=== PATIENT | female | born 1980 | race African-American/Black ===

== ENCOUNTER → 2018-06-29 | Outpatient (CLI) | payer OTHER ==
[2018-06-29 10:49] LABS: BASO % 1 % (0-3); EOS # 0.1 x10^3/uL (0.0-0.7); EOS % 1 % (0-3); HEMATOCRIT 35.3 % (36.0-47.0); HEMOGLOBIN 11.8 g/dL (12.0-15.5); LYMPH # 2.4 x10^3/uL (1.0-4.8); LYMPH % 38 % (24-48); MEAN CORPUSCULAR HEMOGLOBIN 29 pg (25-35); MEAN CORPUSCULAR HGB CONC 33 g/dL (31-37); MEAN CORPUSCULAR VOLUME 85 fL (79-100); MONO # 0.4 x10^3/uL (0.0-1.1); MONO % 6 % (0-9); NEUT # 3.4 x10^3uL (1.8-7.7); NEUT % 55 % (31-73); PLATELET COUNT 214 x10^3/uL (140-400); RED BLOOD COUNT 4.13 x10^6/uL (3.50-5.40); RED CELL DISTRIBUTION WIDTH 14.2 % (11.5-14.5); WHITE BLOOD COUNT 6.3 x10^3/uL (4.0-11.0)
[2018-06-29 11:15] LABS: FREE T4 1.03 ng/dL (0.76-1.46); THYROID STIM HORMONE (TSH) 2.071 uIU/mL (0.358-3.74)
== END | disposition home or self-care (01) ==
LOC: LAB 09:52
PROVIDERS: ATTEND Obstetrics & Gynecology
DX: N94.6 Dysmenorrhea, unspecified (principal)
CPT/HCPCS: 36415; 84439; 84443; 85025

== ENCOUNTER → 2018-07-09 | Outpatient (CLI) | payer OTHER ==
--- NOTE | 2018-07-09 16:25 | RAD ---
Pelvic ultrasound Clinical Indication: Dysmenorrhea.. . TRANSABDOMINAL SCAN No obvious uterine abnormality. Ovaries are poorly seen. TRANSVAGINAL SCAN Uterus: * Size (in centimeters): 9.0 length by 5.0 AP by 6.2 wide * Appearance: Subseptate morphology. * Endometrium: Right endometrium measures 5.2 mm thick, left endometrium measures 5.6 mm thick. Right ovary: * Size: 3.9 cm long axis. * Blood flow: Intact * Appearance: No significant mass. Left ovary: * Size: 4.7 cm long axis. * Blood flow: Intact * Appearance: Complex lesion, demonstrates both solid and cystic component. Measures 2.5 x 2.0 x 2.4 cm. This does demonstrate some peripheral vascular flow. Free fluid: Mild IMPRESSION: 1. Subseptate uterus. 2. Complex left ovarian lesion measures 2.5 cm. This could represent a complex or hemorrhagic cyst but other etiologies are not excludable. In addition, there is some peripheral vascular flow. Recommend follow-up ultrasound in 2-6 weeks. Electronically signed by: Claudio Mabry MD (07/09/2018 4:20 PM) [facility]
== END | disposition home or self-care (01) ==
LOC: US 15:59
PROVIDERS: ATTEND Obstetrics & Gynecology
DX: N83.8 Other noninflammatory disorders of ovary, fallopian tube and broad ligament (principal); Q51.28 Other and unspecified doubling of uterus
CPT/HCPCS: 76830; 76856

== ENCOUNTER → 2018-11-09 | Outpatient (CLI) | payer OTHER ==
[~2018-11-09] MED LIST: AMLO10TA8 PO; DOCU-109 PO; IBUP-1060 PO; LISI1TAB7 PO; OXYC1TAB15 PO
[2018-11-09 13:21] LABS: BASO % 1 % (0-3); EOS # 0.1 x10^3/uL (0.0-0.7); EOS % 1 % (0-3); HEMATOCRIT 37.3 % (36.0-47.0); HEMOGLOBIN 12.7 g/dL (12.0-15.5); LYMPH % 37 % (24-48); MEAN CORPUSCULAR HEMOGLOBIN 29 pg (25-35); MEAN CORPUSCULAR HGB CONC 34 g/dL (31-37); MEAN CORPUSCULAR VOLUME 85 fL (79-100); MONO # 0.4 x10^3/uL (0.0-1.1); MONO % 6 % (0-9); NEUT % 55 % (31-73); PLATELET COUNT 229 x10^3/uL (140-400); RED BLOOD COUNT 4.38 x10^6/uL (3.50-5.40); RED CELL DISTRIBUTION WIDTH 14.2 % (11.5-14.5); WHITE BLOOD COUNT 5.5 x10^3/uL (4.0-11.0)
== END | disposition home or self-care (01) ==
LOC: SURGPAT 12:33
PROVIDERS: ATTEND Obstetrics & Gynecology
DX: Z01.818 Encounter for other preprocedural examination (principal); N83.202 Unspecified ovarian cyst, left side; N94.6 Dysmenorrhea, unspecified; N80.9 Endometriosis, unspecified
CPT/HCPCS: 36415; 85025

== ENCOUNTER 2018-11-15 09:57 | Observation (INO) | payer OTHER ==
[~2018-11-15] VITALS: Ht 160 cm; Wt 95.0 kg
[~2018-11-15 09:57] MED LIST changes: +BUPIVACAINE-EPI 0.25%-1:200000 MPF 30 ML VIAL. ONE; -DOCU-109 PO; +ESTROGENS, CONJ VAGINAL CREAM 30GM TUBE. ONE; -IBUP-1060 PO; +INDIGOTINDISULFONATE SODIUM 40 MG/5 ML AMPUL. IV ONE; -OXYC1TAB15 PO
[2018-11-15] MEDS ORDERED: ceFAZolin 2GM PREMIX 2 GM/50 ML BAG IV ONE (10:00)
[2018-11-15] MEDS ORDERED: PROPOFOL 20 ML IV ONE (10:22)
[2018-11-15] MEDS ORDERED: fentaNYL PF VIAL 100 MCG/2 ML VIAL ONE ×4 (10:22→13:51)
[2018-11-15] MEDS ORDERED: LIDOCAINE 2% PF 5 ML VIAL. ONE (10:22)
[2018-11-15] MEDS ORDERED: ROCURONIUM 50 MG/5 ML VIAL. ONE (10:23)
[2018-11-15] MEDS ORDERED: SUCCINYLCHOLINE 200 MG/10 ML VIAL. ONE (10:28)
[2018-11-15] MEDS: IV RINGERS,LACTATED 1000ML 1,000 ML IV SCH ×2 (10:38→20:26)
[2018-11-15] MEDS ORDERED: LIDOCAINE 1% PF 2 ML VIAL. ID PRN (10:45)
[2018-11-15] MEDS ORDERED: fentaNYL PF VIAL 100 MCG/2 ML VIAL IV PRN (10:45)
[2018-11-15] MEDS ORDERED: MIDAZOLAM HCL/PF 2 MG/2 ML VIAL. IV PRN (10:45)
[2018-11-15 10:50] LABS: U PREG PATIENT NEGATIVE (NEG)
[2018-11-15] MEDS ORDERED: DEXAMETHASONE SOD PHOS 4 MG/ML VIAL ONE (11:59)
[2018-11-15] MEDS ORDERED: DESFLURANE 61 TO 120 MINUTES IH ONE (11:59)
[2018-11-15] MEDS ORDERED: NEOSTIGMINE METHYLSULFATE 5 MG/5 ML SYRINGE. ONE (12:10)
[2018-11-15] MEDS ORDERED: GLYCOPYRROLATE 1 MG/5 ML VIAL. ONE (12:10)
[2018-11-15] MEDS ORDERED: FAMOTIDINE 20 MG/2 ML VIAL ONE (12:10)
[2018-11-15] MEDS ORDERED: ONDANSETRON PF 4 MG/2 ML VIAL. ONE (12:10)
[2018-11-15] MEDS ORDERED: diphenhydrAMINE HCL 25 MG CAPSULE PO PRN (13:00)
[2018-11-15] MEDS ORDERED: 0.9 % SODIUM CHLORIDE 10 ML DISP.SYRIN. IV PRN (13:00)
[2018-11-15] MEDS ORDERED: PROCHLORPERAZINE 10 MG/2 ML VIAL. IV PRN (13:00)
[2018-11-15] MEDS ORDERED: ONDANSETRON PF 4 MG/2 ML VIAL. IV PRN (13:00)
[2018-11-15] MEDS ORDERED: ZOLPIDEM 5 MG TABLET. PO PRN (13:00)
[2018-11-15] MEDS ORDERED: diphenhydrAMINE 50 MG/ML VIAL IV PRN (13:00)
[2018-11-15] MEDS ORDERED: DEXTROSE 50% 25 GM / 50ML DISP.SYRIN. IV PRN (13:00)
--- NOTE | 2018-11-15 13:00 | PDOC ---
BRIEF OPERATIVE NOTE Date: Nov 15, 2018 Pre-Op Diagnosis 1. Dysmenorrhea 2. ANDERSON Cyst Post-Op Diagnosis SAme + Endometriosis Procedure Performed TLH & LSO Surgeon Dr. Quiñonez Supervisor Computer Operations Ann Anesthesia Type: General Blood Loss 50 ml Specimens Obtained cervix, uterus, brent. fallopian tubes and ANDERSON Findings enlarged uterus, nml ROV, nml fallopian tubes brent., ANDERSON with 3 cm cyst and endometriosis Complications none Operative Note see dictation CHAPARRITA QUIÑONEZ Jr, MD Nov 15, 2018 13:00
[2018-11-15] MEDS: fentaNYL PF VIAL 100 MCG/2 ML VIAL IV PRN ×4 (13:20→14:08)
--- NOTE | 2018-11-15 13:29 | OP ---
DATE OF SURGERY: PREOPERATIVE DIAGNOSES: 1. Dysmenorrhea. 2. Left ovarian cyst. POSTOPERATIVE DIAGNOSES: 1. Dysmenorrhea. 2. Left ovarian cyst. 3. Endometriosis. PROCEDURE: TLH and LSO. SURGEON: Chaparrita Quiñonez MD STAKING ENGINEER: Ann. ANESTHESIA: GETA. ESTIMATED BLOOD LOSS: 50 mL. COMPLICATIONS: None. FINDINGS: Enlarged uterus, normal right ovary, normal fallopian tubes bilaterally, left ovary with a 3 cm cyst, endometriosis located near the bladder area and right cornua of the uterus. SUMMARY: A 37-year-old female with history of dysmenorrhea, left ovarian cyst, unresponsive to medical treatment. The patient was counseled on risks, benefits and expectations of TLH and LSO via da Anette robot. The patient voiced clear understanding to proceed. DESCRIPTION OF PROCEDURE: The patient was taken to surgery suite, placed in dorsal lithotomy position where she was prepped with Betadine solution for vaginal prep and ChloraPrep for abdominal prep. After adequate anesthesia, a weighted speculum and curved Shady placed vaginally. Anterior lip of the cervix grasped with single tooth tenaculum. The Janet uterine manipulator was then placed. Single tooth tenaculum and weighted speculum were removed. Attention was now placed on abdomen. Small transverse skin incision made just below the umbilicus with a scalpel. The Veress needle was then placed through the infraumbilical incision site. The abdomen was allowed to insufflate up to 1-1/2 liters CO2 gas. The Veress needle was then removed. An 8-mm trocar port was placed. The camera was positioned. Uterus appeared enlarged. Both fallopian tubes were visualized and normal. Right ovary appeared normal. Left ovary demonstrated a 3 cm cyst. There was endometriosis located in the right cornua of the uterus as well as near the bladder region. These were removed with the specimen. An incision was made in the left and right lower quadrant, which 8 mm trocars were placed. An accessory port was placed in the left upper quadrant, which was 5-mm port. The camera was then docked in normal fashion. I then proceeded to the console. With the aid of bipolar cautery and vessel sealer, the right round ligament was coagulated and dissected. The right fallopian tube was coagulated and dissected away from the right pelvic side wall. This was removed through the 8-mm port. The right utero-ovarian pedicle was coagulated and dissected. The right broad ligament was coagulated and dissected down to and including the right uterine artery. Bladder flap was partially created with the vessel sealer and blunt dissection. The left round ligament was then coagulated and dissected. The left infundibulopelvic ligament was coagulated and dissected away from the left pelvic sidewall. Left broad ligament was coagulated and dissected including the left uterine artery. The uterus was then circumscribed with the spatula at the level of the vaginal ring. The cervix, uterus, left fallopian tube, left ovary were then removed in their entirety. The vaginal cuff was then reapproximated using V-Loc suture in a running fashion. Suction irrigation was utilized to verify good hemostasis of all pedicles as well as the vaginal cuff. The robot was then undocked. Trocars removed under direct visualization. The abdomen was allowed to deflate as much as possible along with mechanical manipulation. The four skin incisions were reapproximated using 4-0 Vicryl suture in subcuticular manner. A 0.25% Marcaine with epinephrine was injected at each incision site. Moist vaginal packing was placed. The patient tolerated the procedure well and was taken to recovery room in stable condition. Sponge and needle count correct x 3. CHAPARRITA QUIÑONEZ MD DR: DANIELLE/teetee JOB#: [id number] / [id number]
[2018-11-15] MEDS: GABAPENTIN 300 MG CAPSULE. PO SCH ×2 (14:00→22:00)
[2018-11-15 14:51] VITALS: BP 130/75
[2018-11-15] MEDS: KETOROLAC 30 MG/ML VIAL. IV PRN (14:59)
[2018-11-15 15:10] VITALS: BP 135/79
[2018-11-15 15:30] VITALS: BP 133/79
[2018-11-15 15:50] VITALS: BP 129/82
[2018-11-15] MEDS: oxyCODONE/APAP 5/325 1 TAB TABLET PO PRN (18:10)
[2018-11-15 20:00] VITALS: BP 104/62
[2018-11-16 00:15] VITALS: BP 110/66
[2018-11-16] MEDS: KETOROLAC 30 MG/ML VIAL. IV PRN (01:51)
[2018-11-16] MEDS: SIMETHICONE 80 MG TAB.CHEW PO PRN ×2 (03:21→19:27)
[2018-11-16] MEDS: oxyCODONE/APAP 5/325 1 TAB TABLET PO PRN ×2 (04:50→19:28)
[2018-11-16] MEDS: GABAPENTIN 300 MG CAPSULE. PO SCH ×3 (06:00→12:53)
[2018-11-16 06:06] VITALS: BP 110/71
[2018-11-16 06:06] LABS: BASO % 0 % (0-3); EOS % 0 % (0-3); HEMOGLOBIN 11.1 g/dL (12.0-15.5); LYMPH # 1.1 x10^3/uL (1.0-4.8); LYMPH % 9 % (24-48); MEAN CORPUSCULAR HEMOGLOBIN 29 pg (25-35); MEAN CORPUSCULAR HGB CONC 34 g/dL (31-37); MEAN CORPUSCULAR VOLUME 85 fL (79-100); MONO # 0.4 x10^3/uL (0.0-1.1); MONO % 3 % (0-9); NEUT # 10.8 x10^3uL (1.8-7.7); NEUT % 87 % (31-73); RED BLOOD COUNT 3.87 x10^6/uL (3.50-5.40); RED CELL DISTRIBUTION WIDTH 14.1 % (11.5-14.5); WHITE BLOOD COUNT 12.3 x10^3/uL (4.0-11.0)
[2018-11-16] MEDS: CALCIUM CARBONATE 500 MG TAB.CHEW PO PRN ×3 (08:07→19:27)
[2018-11-16 08:12] LABS: PLATELET COUNT 238 x10^3/uL (140-400)
[2018-11-16 08:14] LABS: % BANDS 5 % (0-9); % LYMPHS 4 % (24-48); % MONOS 4 % (0-10); % SEGS 87 % (35-66); PLT ESTIMATE ADEQUATE (ADEQUATE)
[2018-11-16 10:00] VITALS: BP 119/72
[2018-11-16] MEDS ORDERED: BISACODYL 10 MG SUPP.RECT. PR PRN (12:00)
[2018-11-16] MEDS ORDERED: MAGNESIUM HYDROXIDE 2,400 MG/30 ML ORAL.SUSP. PO ONE (12:30)
[2018-11-16] MEDS ORDERED: SODIUM PHOSPHATES 19/7GM 133 ML ENEMA. PR ONE (15:30)
--- NOTE | 2018-11-16 15:49 | PDOC ---
SURGICAL PROGRESS NOTE Subjective Pt. feeling well. Pain controlled. Vital Signs Vital Signs Date Time Temp Pulse Resp B/P (MAP) Pulse Ox O2 Delivery O2 Flow Rate FiO2 11/16/18 10:00 97.5 77 18 119/72 (88) 100 Room Air 97.5 11/15/18 13:35 8.0 I&O Intake and Output 11/16/18 07:00 Intake Total 3370 ml Output Total 2400 ml Balance 970 ml Intake Oral 1220 ml IV Total 1050 ml Other 1100 ml Output Urine Total 2350 ml Estimated Blood Loss 50 ml PATIENT HAS A BASILIO: No General: Alert, Oriented X3, Cooperative HEENT: Atraumatic Lungs: Clear to auscultation Heart: Regular rate Abdomen: Normal bowel sounds, Soft, No masses Psych/Mental Status: Mental status NL Labs Laboratory Tests Test 11/15/18 10:06 11/16/18 04:35 Urine Test Negative (NEG) White Blood Count 12.3 x10^3/uL (4.0-11.0) Red Blood Count 3.87 x10^6/uL (3.50-5.40) Hemoglobin 11.1 g/dL (12.0-15.5) Hematocrit 33.0 % (36.0-47.0) Mean Corpuscular Volume 85 fL (79-100) Mean Corpuscular Hemoglobin 29 pg (25-35) Mean Corpuscular Hemoglobin Concent 34 g/dL (31-37) Red Cell Distribution Width 14.1 % (11.5-14.5) Platelet Count 238 x10^3/uL (140-400) Neutrophils (%) (Auto) 87 % (31-73) Lymphocytes (%) (Auto) 9 % (24-48) Monocytes (%) (Auto) 3 % (0-9) Eosinophils (%) (Auto) 0 % (0-3) Basophils (%) (Auto) 0 % (0-3) Neutrophils # (Auto) 10.8 x10^3uL (1.8-7.7) Lymphocytes # (Auto) 1.1 x10^3/uL (1.0-4.8) Monocytes # (Auto) 0.4 x10^3/uL (0.0-1.1) Eosinophils # (Auto) 0.0 x10^3/uL (0.0-0.7) Basophils # (Auto) 0.0 x10^3/uL (0.0-0.2) Segmented Neutrophils % 87 % (35-66) Band Neutrophils % 5 % (0-9) Lymphocytes % 4 % (24-48) Monocytes % 4 % (0-10) Platelet Estimate Adequate (ADEQUATE) Laboratory Tests Test 11/16/18 04:35 White Blood Count 12.3 x10^3/uL (4.0-11.0) Red Blood Count 3.87 x10^6/uL (3.50-5.40) Hemoglobin 11.1 g/dL (12.0-15.5) Hematocrit 33.0 % (36.0-47.0) Mean Corpuscular Volume 85 fL (79-100) Mean Corpuscular Hemoglobin 29 pg (25-35) Mean Corpuscular Hemoglobin Concent 34 g/dL (31-37) Red Cell Distribution Width 14.1 % (11.5-14.5) Platelet Count 238 x10^3/uL (140-400) Neutrophils (%) (Auto) 87 % (31-73) Lymphocytes (%) (Auto) 9 % (24-48) Monocytes (%) (Auto) 3 % (0-9) Eosinophils (%) (Auto) 0 % (0-3) Basophils (%) (Auto) 0 % (0-3) Neutrophils # (Auto) 10.8 x10^3uL (1.8-7.7) Lymphocytes # (Auto) 1.1 x10^3/uL (1.0-4.8) Monocytes # (Auto) 0.4 x10^3/uL (0.0-1.1) Eosinophils # (Auto) 0.0 x10^3/uL (0.0-0.7) Basophils # (Auto) 0.0 x10^3/uL (0.0-0.2) Segmented Neutrophils % 87 % (35-66) Band Neutrophils % 5 % (0-9) Lymphocytes % 4 % (24-48) Monocytes % 4 % (0-10) Platelet Estimate Adequate (ADEQUATE) Assessment/Plan A: POD# TLH & LSO P: D/c home. CHAPARRITA MILLAN Jr, MD Nov 16, 2018 15:49
[2018-11-16] MEDS ORDERED: OXYC1TAB15 PO (15:51)
[2018-11-16] MEDS ORDERED: DOCU-109 PO (15:51)
[2018-11-16] MEDS ORDERED: IBUP-1060 PO (15:51)
--- NOTE | 2018-11-16 15:53 | DISCH ---
DISCHARGE INSTRUCTIONS Condition on Discharge Condition on Discharge: Stable Activity After Discharge Activity Instructions for Disc: Activity as tolerated Lifting Instructions after Dis: No heavy lifting Driving Instructions after Dis: No driving for 2 weeks Diet after Discharge Diet after Discharge: Regular Contacting the DRJocelynn after DC Call your doctor for: Concerns you may have Follow-Up Follow up with: Dr. Quiñonez in 2 weeks. CHAPARRITA QUIÑONEZ Jr, MD Nov 16, 2018 15:53
[2018-11-16 20:05] VITALS: BP 139/87
--- NOTE | 2018-11-20 09:07 | PATHOLOGY ---
[facility] Accession Number: [id number] . 01 Material submitted: . uterus - CERVIX, UTERUS, BILATERAL TUBES, AND LEFT OVARY . 01 Clinician provided ICD-10: y . 01 Clinical history: . Dysmenorrhagia . 02 Diagnosis: Uterus, bilateral fallopian tubes, and left ovary, removal: - Cervix with mild chronic inflammation, squamous metaplasia, and nabothian cysts. - Proliferative phase endometrium. - Myometrium with no pathologic diagnosis. - Right fallopian tube with simple paratubal cyst. - Left fallopian tube with focal adhesion to left ovary - Left ovary with simple cysts (SKM/db; 11/19/2018) LBQ/11/19/2018 . 02 Electronically signed: . Garrick Franz MD, Pathologist NPI- [id number] . 01 Gross description: . The specimen is received in formalin, labeled "Jose, Zulema, cervix, uterus, bilateral tubes and left ovary" is an unopened, and pyriform uterus weighing 106 g with attached left adnexa weighing 17 g. The uterine corpus with attached cervix (7.5 x 5.0 x 3.0 cm), left adnexa (ovary = 3.7 x 3.0 x 2.0 cm and fallopian 6.0 cm length and up to 0.4 cm in diameter. Also received within the container is a detached, fimbriated segment of right fallopian tube measuring 7.0 cm in length and up to 0.4 cm in diameter. The serosa is alberts-pink and smooth. The anterior paracervical soft tissue is inked blue. The ectocervix is disrupted and has a surface diameter of 3.2 x 3.0 cm and a 1.0 cm slit-like external os. The ectocervical mucosa is disrupted, hemorrhagic and granular from 12:00 to 6:00 with the remaining alberts-pink and smooth. The 2.5 cm long x 0.8 cm wide endocervical canal is covered with alberts-pink, herringbone mucosa. The endometrial cavity is triangular, 4.5 cm long x 2.0 cm wide, and covered with alberts-pink endometrium of up to 0.3 cm thickness. There are no polyps or masses. The alberts-pink, moderately trabeculated myometrium is 1.8 cm in thickness. No discrete nodules are identified. The left ovary has a alberts-key smooth external surface. The cut surfaces are white-key, with a well-defined yellow nodule resembling corpus luteum and multiple white nodules resembling corpora albicantia. There are few intraparenchymal cysts which have a smooth lining and are filled with clear fluid. The right and left fallopian tubes have a pink-alberts serosal surface with the left focally adhered to the ovary. The fimbriae are normal in configuration. There is a 1.0 cm clear fluid-filled cyst attached to the of right fallopian tube serosa. Career Development Specialist tissue submitted as follows: A1-A4. Anterior cervix A5-A8. Posterior cervix A9-A10. Anterior endomyometrium. (From lower uterine segment to fundus) A11-A12. Posterior endomyometrium. (From fundus to lower uterine segment) A13. Right fallopian tube. A14. Left ovary and fallopian tube, adhesion. A15-A16. Left ovary, bisected. A17. Left fallopian tube. ([facility]; 11/16/2018) SHS/SHS . 02 Pathologist provided ICD-10: N72, N83.8, N83.202 . 02 CPT . 941431 Specimen Comment: A courtesy copy of this report has been sent to Specimen Comment: [phone], . Specimen Comment: Report sent to / DR PRITCHETT Performed at: 01 [facility] [address], [place] [id number] MD Caio Cross MD Phone: [phone] Performed at: 02 [facility] [address] [place], [place] [id number] MD Juventino La MD Phone: [phone]
== END 2018-11-16 20:15 | disposition home or self-care (01) ==
LOC: SURG 09:57 → 3 NORTH 13:00
PROVIDERS: ADMIT Obstetrics & Gynecology; ATTEND Obstetrics & Gynecology
DX: N94.6 Dysmenorrhea, unspecified (principal); N83.202 Unspecified ovarian cyst, left side; N80.1 Endometriosis of ovary; N80.0 Endometriosis of uterus; I10 Essential (primary) hypertension
CPT/HCPCS: 36415; 58570; 81025; 85007; 85025; 86850; 86900; 86901; 88307; 96374; 96375; 96376; A7015; G0378; G0379; J0330; J0696; J0780; J1100; J1885; J2001; J2405; J2704; J2710; J3010; J3490; J7030; J7120

== ENCOUNTER 2019-04-23 16:13 | Emergency (ER) | payer OTHER ==
[~2019-04-23] VITALS: Ht 160 cm; Wt 90.7 kg
[~2019-04-23 16:13] MED LIST changes: -BUPIVACAINE-EPI 0.25%-1:200000 MPF 30 ML VIAL. ONE; +DOCU-109 PO; -ESTROGENS, CONJ VAGINAL CREAM 30GM TUBE. ONE; +IBUP-1060 PO; -INDIGOTINDISULFONATE SODIUM 40 MG/5 ML AMPUL. IV ONE; +LISI1TAB20 PO; -LISI1TAB7 PO; +OXYC1TAB15 PO
[2019-04-23 16:38] VITALS: BP 168/92
--- NOTE | 2019-04-23 16:42 | PHYS DOC ---
Past Medical History Past Medical History: Hypertension (HEATHER SNOWDEN DO) Past Surgical History: Hysterectomy (HEATHER SNOWDEN DO) Additional Information: Nonsmoker Alcohol Use: Rarely Drug Use: None (HEATHER SNOWDEN DO) Adult General Chief Complaint Chief Complaint: COUGH HPI HPI Patient is a 38 year old female who presents with Monday began having cough, chest tightness, fever and body aches. Patient states on Monday the fever and bodyaches went away but she continues with cough and chest tightness. Patient currently denies pain. (SHAMEKA WINKLER APRN) Review of Systems Review of Systems Constitutional: fever or chills [] Eyes: Denies change in visual acuity, redness, or eye pain [] Respiratory: cough or shortness of breath [] Cardiovascular: Chest tightness Musculoskeletal: Body aches. Denies back pain or joint pain [] All other systems were reviewed and found to be within normal limits, except as documented in this note. (SHAMEKA WINKLER APRN) Current Medications Current Medications Current Medications Medications (Trade) Dose Ordered Sig/Dana Start Time Stop Time Status Last Admin Dose Admin Albuterol Sulfate (Ventolin Neb Soln) 2.5 mg 1X ONCE 04/23/19 16:45 04/23/19 16:46 DC 04/23/19 16:46 2.5 MG Prednisone (Prednisone) 50 mg 1X ONCE 04/23/19 16:45 04/23/19 16:46 DC 04/23/19 17:11 50 MG (HEATHER SNOWDEN DO) Allergies Allergies Allergies Coded Allergies Type Severity Reaction Last Updated Verified No Known Drug Allergies 11/15/18 No (HEATHER SNOWDEN DO) Physical Exam Physical Exam Constitutional: Well developed, well nourished, no acute distress, non-toxic appearance. [] HENT: Normocephalic, atraumatic, bilateral external ears normal, oropharynx moist, no oral exudates, nose normal. [] Eyes: PERRLA, EOMI, conjunctiva normal, no discharge. [] Neck: Normal range of motion, no tenderness, supple, no stridor. [] Cardiovascular:Heart rate regular rhythm, no murmur [] Lungs & Thorax: Bilateral breath sounds clear but tight or diminished to auscultation [] Abdomen: Bowel sounds normal, soft, no tenderness, no masses, no pulsatile masses. [] Skin: Warm, dry, no erythema, no rash. [] Neurologic: Alert and oriented X 3, normal motor function, normal sensory function, no focal deficits noted. [] Psychologic: Affect normal, judgement normal, mood normal. [] (SHAMEKA WINKLER APRN) Current Patient Data Vital Signs Vital Signs Date Time Temp Pulse Resp B/P (MAP) Pulse Ox O2 Delivery O2 Flow Rate FiO2 04/23/19 16:48 99 Room Air 04/23/19 16:38 98.9 75 18 168/92 (117) 98.9 (HEATHER SNOWDEN DO) Lab Values Laboratory Tests Test 04/23/19 17:13 Influenza Type A Antigen Negative (NEGATIVE) Influenza Type B Antigen Negative (NEGATIVE) (HEATHER SNOWDEN DO) EKG EKG [] (SHAMEKA WINKLER APRN) Radiology/Procedures Radiology/Procedures [] (SHAMEKA WINKLER APRN) Impressions: [facility] [address] [place] [address] IMAGING REPORT Signed PATIENT: PARISA PETE ACCOUNT: [id number] : 1980 LOCATION: ER AGE: 38 SEX: F EXAM STATUS: REG ER ORD. PHYSICIAN: SHAMEKA WINKLER APRN REASON: cough PROCEDURE: CHEST PA & LATERAL CHEST PA LATERAL INDICATION: Cough. COMPARISON STUDY: 10/11/2017. FINDINGS: Lungs: Normal lung volume. No pulmonary mass or consolidation. The tracheobronchial tree and hilar structures are normal. Pleura: No pleural effusion or pneumothorax. Heart and Mediastinum: The cardiomediastinal silhouette is normal. The great vessels of the thorax are normal. Bones and Soft Tissues: The bones and soft tissues are within normal limits. IMPRESSION: No acute cardiopulmonary process. Electronically signed by: Aung Silverio MD (04/23/2019 5:26 PM) [facility] DICTATED and SIGNED BY: AUNG SILVERIO MD DATE: 04/23/19 4221 (SHAMEKA WINKLER APRN) Course & Med Decision Making Course & Med Decision Making Alert and oriented. Speaks in full clear sentences. Skin pink warm and dry. Lungs are clear but are tight. Patient has a dry cough. She states in the morning she may cough up a small amount of mucous but primarily is dry cough. Patient denies nasal congestion. Throat is pink and without exudates or swelling. Bilateral ear tympanic are pearly white. Patient denies nausea, vomiting, chest pain, abdominal pain, dysuria, back pain, numbness or tingling, headache, dizziness, diarrhea. Ambulatory with a steady gait. PERRLA. Vital signs within normal limits. Chest xray shows no acute findings. Patient feeling better after breathing treatment. (SHAMEKA WINKLER APRN) Dragon Disclaimer Dragon Disclaimer This electronic medical record was generated, in whole or in part, using a voice recognition dictation system. (SHAMEKA WINKLER APRN) Departure Departure Impression: Primary Impression: Cough Disposition: HOME, SELF-CARE Condition: STABLE Referrals: JULIANO PRITCHETT MD (PCP) Patient Instructions: Cough, Adult Additional Instructions: Follow up with primary care if needed. Use medications as directed. Scripts Albuterol Sulfate (Proair Hfa) 8.5 Gm Hfa.aer.ad 1 PUFF INH PRN Q6HRS PRN for SHORTNESS OF BREATH, #1 INHALER Prov: SHAMEKA WINKLER APRN 04/23/19 Benzonatate (TESSALON PERLE) 100 Mg Capsule 200 MG PO TID PRN for COUGH, #30 CAP Prov: SHAMEKA WINKLER APRN 04/23/19 Methylprednisolone (MEDROL) 4 Mg Tab.ds.pk 1 PKG PO UD, #1 PKG Prov: SHAMEKA WINKLER APRN 04/23/19 Attending Signature Attending Signature I have reviewed the PA/STUDENT DEAN's note and plan of care. I was available for consultation as needed during the patient's visit in the emergency department. I agree with the clinical impression, plan, and disposition. (HEATHER SNOWDEN DO) SHAMEKA WINKLER APRN Apr 23, 2019 16:42 HEATHER SNOWDEN DO Apr 25, 2019 13:01
[2019-04-23] MEDS ORDERED: predniSONE 10 MG TABLET PO ONE (16:45)
[2019-04-23] MEDS ORDERED: ALBUTEROL SULFATE 2.5 MG/3 ML NEBU. NEB ONE (16:45)
--- NOTE | 2019-04-23 17:29 | RAD ---
CHEST PA LATERAL INDICATION: Cough. COMPARISON STUDY: 10/11/2017. FINDINGS: Lungs: Normal lung volume. No pulmonary mass or consolidation. The tracheobronchial tree and hilar structures are normal. Pleura: No pleural effusion or pneumothorax. Heart and Mediastinum: The cardiomediastinal silhouette is normal. The great vessels of the thorax are normal. Bones and Soft Tissues: The bones and soft tissues are within normal limits. IMPRESSION: No acute cardiopulmonary process. Electronically signed by: Anthony Silverio MD (04/23/2019 5:26 PM) [facility]
[2019-04-23] MEDS ORDERED: BENZ100C PO (17:33)
[2019-04-23] MEDS ORDERED: ALBU2.5V8 INH (17:33)
[2019-04-23] MEDS ORDERED: METH4TAB2 PO (17:33)
[2019-04-23 18:02] LABS: INFLUENZA A PATIENT NEGATIVE (NEGATIVE); INFLUENZA B PATIENT NEGATIVE (NEGATIVE)
== END 2019-04-23 18:13 | disposition home or self-care (01) ==
LOC: ER 16:13
DX: R05 Cough (principal); R07.89 Other chest pain; R50.9 Fever, unspecified; I10 Essential (primary) hypertension; Z90.710 Acquired absence of both cervix and uterus
CPT/HCPCS: 71046; 87804; 94640; 99285; J7512; J7613

== ENCOUNTER 2019-08-14 21:49 | Emergency (ER) | payer OTHER ==
[~2019-08-14] VITALS: Ht 160 cm; Wt 100.0 kg
[~2019-08-14 21:49] MED LIST changes: +ALBU2.5V8 INH; +BENZ100C PO; +METH4TAB2 PO
[2019-08-14 22:22] LABS: BASO % 0 % (0-3); EOS # 0.1 x10^3/uL (0.0-0.7); EOS % 1 % (0-3); HEMATOCRIT 35.5 % (36.0-47.0); LYMPH # 3.1 x10^3/uL (1.0-4.8); LYMPH % 42 % (24-48); MEAN CORPUSCULAR HEMOGLOBIN 29 pg (25-35); MEAN CORPUSCULAR HGB CONC 34 g/dL (31-37); MEAN CORPUSCULAR VOLUME 85 fL (79-100); MONO # 0.5 x10^3/uL (0.0-1.1); MONO % 7 % (0-9); NEUT # 3.7 x10^3/uL (1.8-7.7); NEUT % 51 % (31-73); PLATELET COUNT 215 x10^3/uL (140-400); RED BLOOD COUNT 4.17 x10^6/uL (3.50-5.40); WHITE BLOOD COUNT 7.4 x10^3/uL (4.0-11.0)
--- NOTE | 2019-08-14 22:22 | PHYS DOC ---
Past Medical History Past Medical History: Hypertension Past Surgical History: Hysterectomy Smoking Status: Never Smoker Alcohol Use: Rarely Drug Use: None Adult General Chief Complaint Chief Complaint: CHEST PAIN HPI HPI Patient is a 38 year old female with history of hypertension and family history of coronary artery disease who presents with complaint of chest pain. 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 Patient stated the pain radiated to her back and associated with shortness of breath and dizziness and left upper extremity paresthesia. Patient rated her pain 7/10 and states with activity she had increasing of the pain or shortness of breath and dizziness. Patient denies history of the same pain. Patient denies recent fever and chills, cough and congestion, nasal congestion and sore throat, vomiting and diarrhea, urinary symptoms. Patient did not take any medication for her pain. Review of Systems Review of Systems Constitutional: Denies fever or chills [] Eyes: Denies change in visual acuity, redness, or eye pain [] HENT: Denies nasal congestion or sore throat [] Respiratory: Denies cough, report shortness of breath [] Cardiovascular: No additional information not addressed in HPI [] GI: Denies abdominal pain, nausea, vomiting, bloody stools or diarrhea [] : Denies dysuria or hematuria [] Musculoskeletal: Denies back pain or joint pain [] Integument: Denies rash or skin lesions [] Neurologic: Denies headache, focal weakness or sensory changes [] Endocrine: Denies polyuria or polydipsia [] All other systems were reviewed and found to be within normal limits, except as documented in this note. Current Medications Current Medications Current Medications Medications (Trade) Dose Ordered Sig/[facility] Start Time Stop Time Status Last Admin Dose Admin Aspirin (Children'S Aspirin) 324 mg 1X ONCE 08/14/19 22:30 08/14/19 22:31 DC 08/14/19 22:46 324 MG Info (CONTRAST GIVEN -- Rx MONITORING) 1 each PRN DAILY PRN 08/14/19 23:45 08/15/19 00:44 DC Iohexol (Omnipaque 350 Mg/ml) 100 ml 1X ONCE 08/15/19 00:00 08/15/19 00:01 DC 08/14/19 23:51 100 ML Nitroglycerin (Nitrostat) 0.4 mg PRN Q5MIN PRN 08/14/19 22:15 08/15/19 00:44 DC 08/14/19 22:47 0.4 MG Allergies Allergies Allergies Coded Allergies Type Severity Reaction Last Updated Verified No Known Drug Allergies 11/15/18 No Physical Exam Physical Exam Constitutional: Well developed, well nourished, mild distress, non-toxic appearance. [] HENT: Normocephalic, atraumatic, bilateral external ears normal, oropharynx moist, no oral exudates, nose normal. [] Eyes: PERRLA, EOMI, conjunctiva normal, no discharge. [] Neck: Normal range of motion, no tenderness, supple, no stridor. [] Cardiovascular:Heart rate regular rhythm, no murmur [] Lungs & Thorax: Bilateral breath sounds clear to auscultation [] Abdomen: Bowel sounds normal, soft, no tenderness, no masses, no pulsatile masses. [] Skin: Warm, dry, no erythema, no rash. [] Back: No tenderness, no CVA tenderness. [] Extremities: No tenderness, no cyanosis, no clubbing, ROM intact, no edema. [] Neurologic: Alert and oriented X 3, normal motor function, normal sensory function, no focal deficits noted. [] Psychologic: Affect normal, judgement normal, mood normal. [] Current Patient Data Vital Signs Vital Signs Date Time Temp Pulse Resp B/P (MAP) Pulse Ox O2 Delivery O2 Flow Rate FiO2 08/14/19 23:56 72 18 158/102 (120) 100 Room Air 08/14/19 21:50 98.6 98.6 Lab Values Laboratory Tests Test 08/14/19 22:05 White Blood Count 7.4 x10^3/uL (4.0-11.0) Red Blood Count 4.17 x10^6/uL (3.50-5.40) Hemoglobin 12.0 g/dL (12.0-15.5) Hematocrit 35.5 % (36.0-47.0) L Mean Corpuscular Volume 85 fL (79-100) Mean Corpuscular Hemoglobin 29 pg (25-35) Mean Corpuscular Hemoglobin Concent 34 g/dL (31-37) Red Cell Distribution Width 14.0 % (11.5-14.5) Platelet Count 215 x10^3/uL (140-400) Neutrophils (%) (Auto) 51 % (31-73) Lymphocytes (%) (Auto) 42 % (24-48) Monocytes (%) (Auto) 7 % (0-9) Eosinophils (%) (Auto) 1 % (0-3) Basophils (%) (Auto) 0 % (0-3) Neutrophils # (Auto) 3.7 x10^3/uL (1.8-7.7) Lymphocytes # (Auto) 3.1 x10^3/uL (1.0-4.8) Monocytes # (Auto) 0.5 x10^3/uL (0.0-1.1) Eosinophils # (Auto) 0.1 x10^3/uL (0.0-0.7) Basophils # (Auto) 0.0 x10^3/uL (0.0-0.2) Prothrombin Time 11.8 SEC (11.7-14.0) Prothrombin Time INR 0.9 (0.8-1.1) D-Dimer (Elodia) 1.34 ug/mlFEU (0.00-0.50) H Sodium Level 140 mmol/L (136-145) Potassium Level 3.6 mmol/L (3.5-5.1) Chloride Level 104 mmol/L (98-107) Carbon Dioxide Level 26 mmol/L (21-32) Anion Gap 10 (6-14) Blood Urea Nitrogen 15 mg/dL (7-20) Creatinine 1.0 mg/dL (0.6-1.0) Estimated GFR (Cockcroft-Gault) 74.7 BUN/Creatinine Ratio 15 (6-20) Glucose Level 93 mg/dL (70-99) Calcium Level 8.8 mg/dL (8.5-10.1) Magnesium Level 2.0 mg/dL (1.8-2.4) Total Bilirubin 0.2 mg/dL (0.2-1.0) Aspartate Amino Transferase (AST) 19 U/L (15-37) Alanine Aminotransferase (ALT) 31 U/L (14-59) Alkaline Phosphatase 68 U/L (46-116) Creatine Kinase 136 U/L (26-192) Troponin I Quantitative < 0.017 ng/mL (0.000-0.055) LO-Clu-W-Type Natriuretic Peptide 25 pg/mL (0-124) Total Protein 7.6 g/dL (6.4-8.2) Albumin 3.9 g/dL (3.4-5.0) Albumin/Globulin Ratio 1.1 (1.0-1.7) Lipase 117 U/L (73-393) Thyroid Stimulating Hormone (TSH) 1.168 uIU/mL (0.358-3.74) Laboratory Tests 08/14/19 22:05 Laboratory Tests 08/14/19 22:05 EKG EKG EKG interpreted by me. EKG at 2157 showed normal sinus rhythm at rate of 62, normal IN and QT intervals, poor R wave progression anteroseptal leads, no acute ST and T wave elevation. Radiology/Procedures Radiology/Procedures [address] [address] IMAGING REPORT Signed PATIENT: PARISA PETE ACCOUNT: [id number] : 1980 LOCATION: ER AGE: 38 SEX: F EXAM STATUS: REG ER ORD. PHYSICIAN: OLGA LIDIA JORDAN MD REASON: Chest pain PROCEDURE: PORTABLE CHEST 1V Portable AP chest. HISTORY: Chest pain AP view was taken of the chest. The patient is lordotically positioned. There are no infiltrates. Heart is normal in size. There is no effusion. There is a granuloma in the left apex. IMPRESSION: 1. No acute chest disease. Electronically signed by: Héctor Pineda MD (08/14/2019 11:35 PM) [id number] DICTATED and SIGNED BY: HÉCTOR PINEDA MD DATE: 08/14/[address] [address] IMAGING REPORT Signed PATIENT: PARISA PETE ACCOUNT: [id number] : 1980 LOCATION: ER AGE: 38 SEX: F EXAM STATUS: REG ER ORD. PHYSICIAN: OLGA LIDIA JORDAN MD REASON: Substernal and epigastric pain PROCEDURE: ABDOMEN LTD Ultrasound of the abdomen limited. HISTORY: Substernal and epigastric pain Ultrasound was used to evaluate the abdomen. The pancreas is incompletely evaluated. Only portions of the mid pancreas were identified. Common duct was normal measuring 4 mm. Proximal aorta and vena cava were within normal limits in size and appearance. Liver is difficult to fully evaluate. A focal liver lesion was not identified. There is flow in the portal vein with color imaging and Doppler. Gallbladder was normal without gallstones or gallbladder wall thickening. Right kidney was 11.4 cm in length without a mass or hydronephrosis. IMPRESSION: 1. Some limitations in evaluation of the liver and pancreas. 2. A focal liver lesion was not identified. 3. No gallstones identified. 4. No right hydronephrosis. Electronically signed by: Héctor Pineda MD (08/14/2019 11:56 PM) [id number] DICTATED and SIGNED BY: HÉCTOR PINEDA MD DATE: 08/14/19 2356 [facility] [address] [place] [address] IMAGING REPORT Signed PATIENT: PARISA PETE ACCOUNT: [id number] : 1980 LOCATION: ER AGE: 38 SEX: F EXAM STATUS: REG ER ORD. PHYSICIAN: OLGA LIDIA JORDAN MD REASON: Chest pain and shortness of breath, elevated d-dimer PROCEDURE: CT ANGIOGRAPHY CHEST EXAM: CT chest with contrast - pulmonary embolus protocol CLINICAL HISTORY: Chest pain and shortness of breath, elevated d-dimer COMPARISON: Ultrasound abdomen 08/14/2019. TECHNIQUE: CT of the chest following the administration of intravenous contrast during the pulmonary arterial phase. Axial, coronal and sagittal reformatted images were generated including MIP images. ---PQRS compliance statement - One or more of the following individualized dose reduction techniques were utilized for this study: 1. Automated exposure control 2. Adjustment of the mA and/or kV according to patient size 3. Use of iterative reconstruction technique--- FINDINGS: CHEST: Diagnostic quality: Nondiagnostic. Suboptimal contrast bolus. Pulmonary emboli: None seen Right heart strain: None Pulmonary arteries: Normal in caliber. Heart is not enlarged. No pericardial effusion. No pleural effusion or pneumothorax. No mediastinal or hilar lymphadenopathy. Anterior mediastinal soft tissue triangular density, likely residual thymus. Scattered calcified granulomas are seen. Visualized Upper abdomen: Upper abdomen is grossly unremarkable. Bones: No aggressive osseous lesion is seen. Evaluation of the bones is limited given MIP reconstructions. IMPRESSION: 1. Examination is nondiagnostic for the evaluation of acute pulmonary embolus. 2. Calcified granuloma are seen bilaterally. 3. No thoracic lymphadenopathy. Electronically signed by: Lyle Babb MD (08/15/2019 12:06 AM) [id number] DICTATED and SIGNED BY: LYLE BABB MD DATE: 08/15/19 0006 Course & Med Decision Making Course & Med Decision Making Pertinent Labs and Imaging studies reviewed. 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 Patient had unremarkable physical exam and EKG and labs and chest x-ray except for mild elevation of d-dimer. CT Angio of chest was unremarkable. Patient felt better with treatment in ER. Plan to discharge patient home with diagnosis of noncardiac chest pain and advised to follow-up with her primary care physician. I've spoken with the patient and/or caregivers. I've explained the patient's condition, diagnosis and treatment plan based on information available to me at this time. I've answered the patient's and/or caregivers questions and addressed any concerns. The patient and/or caregivers have a good understanding the patient's diagnosis, condition and treatment plan as can be expected at this point. Vital signs have been stabilized. The patient's condition is stable for discharge from the emergency department. The patient will pursue further outpatient evaluation with her primary care provider or other designated consulting physician as outlined in the discharge instructions. Patient and/or caregivers are agreeable to this plan of care and follow-up instructions have been explained in detail. The patient and/or caregivers have received these instructions in written format and expressed understanding of these discharge instructions. The patient and her caregivers are aware that if any significant change in condition or worsening of symptoms should prompt him to immediately return to this of the closest emergency department. If an emergent department is not readily available I would encourage him to call 911. Chelsy Disclaimer Dragon Disclaimer This electronic medical record was generated, in whole or in part, using a voice recognition dictation system. Departure Departure Impression: Primary Impression: Non-cardiac chest pain Disposition: HOME, SELF-CARE (At 0018) Condition: IMPROVED Referrals: JULIANO PRITCHETT MD (PCP) Patient Instructions: Chest Pain (Nonspecific) Additional Instructions: Drink plenty of liquids Follow-up with your primary care physician in 3-5 days Return to ER if not getting better May take [id number] Tylenol or ibuprofen as needed for pain Thank you for visiting [facility]. We appreciate you trusting us with your care. If any additional problems come up don't hesitate to return to visit us. Please follow up with your primary care provider so they can plan additional care if needed and know about the problem that you had. If symptoms worsen come back to the Emergency Department. Any concerning symptoms that start such as chest pain, shortness of air, weakness or numbness on one side of the body, running high fevers or any other concerning symptoms return to the ER. The HEART Score for CP Pts HEART Score for Chest Pain: HEART Score for Chest Pain Response (Comments) Value History Slighlty/Non-Suspicious 0 ECG Nonspecific Repolarizatio 1 Age < 45 0 Risk Factors 1 or 2 Risk Factors 1 Troponin < Normal Limit 0 Total 2 Risk Factors: Risk Factors: DM, Current or recent (<one month) smoker, HTN, HLP, family history of CAD, obesity. Risk Scores: Score 0 - 3: 2.5% MACE over next 6 weeks - Discharge Home Score 4 - 6: 20.3% MACE over next 6 weeks - Admit for Clinical Observation Score 7 - 10: 72.7% MACE over next 6 weeks - Early Invasive Strategies OLGA LIDIA JORDAN MD Aug 14, 2019 22:22
[2019-08-14 22:33] LABS: PROTHROMBIN TIME PATIENT 11.8 SEC (11.7-14.0)
[2019-08-14 22:37] LABS: CALCIUM 8.8 mg/dL (8.5-10.1); GFR 74.7; POTASSIUM 3.6 mmol/L (3.5-5.1)
[2019-08-14 22:38] LABS: D-DIMER 1.34 ug/mlFEU (0.00-0.50)
[2019-08-14 22:42] LABS: ALBUMIN 3.9 g/dL (3.4-5.0); ALBUMIN/GLOBULIN RATIO 1.1 (1.0-1.7); TOTAL BILIRUBIN 0.2 mg/dL (0.2-1.0); TOTAL PROTEIN 7.6 g/dL (6.4-8.2)
[2019-08-14] MEDS: ASPIRIN CHEWABLE 81 MG TABLET. PO ONE (22:46)
[2019-08-14] MEDS: NITROGLYCERIN SUBLINGUAL 0.4 MG BOTTLE OF 25. SL PRN (22:47)
--- NOTE | 2019-08-14 23:38 | RAD ---
Portable AP chest. HISTORY: Chest pain AP view was taken of the chest. The patient is lordotically positioned. There are no infiltrates. Heart is normal in size. There is no effusion. There is a granuloma in the left apex. IMPRESSION: 1. No acute chest disease. Electronically signed by: Héctor Pineda MD (08/14/2019 11:35 PM) [id number]
[2019-08-14] MEDS ORDERED: CONTRAST GIVEN. MC PRN (23:45)
[2019-08-14] MEDS: IOHEXOL 350 MG/ML 100 ML VIAL. IV ONE (23:51)
[2019-08-14 23:56] VITALS: BP 158/102
--- NOTE | 2019-08-14 23:58 | RAD ---
Ultrasound of the abdomen limited. HISTORY: Substernal and epigastric pain Ultrasound was used to evaluate the abdomen. The pancreas is incompletely evaluated. Only portions of the mid pancreas were identified. Common duct was normal measuring 4 mm. Proximal aorta and vena cava were within normal limits in size and appearance. Liver is difficult to fully evaluate. A focal liver lesion was not identified. There is flow in the portal vein with color imaging and Doppler. Gallbladder was normal without gallstones or gallbladder wall thickening. Right kidney was 11.4 cm in length without a mass or hydronephrosis. IMPRESSION: 1. Some limitations in evaluation of the liver and pancreas. 2. A focal liver lesion was not identified. 3. No gallstones identified. 4. No right hydronephrosis. Electronically signed by: Héctor Pineda MD (08/14/2019 11:56 PM) [id number]
--- NOTE | 2019-08-15 00:10 | RAD ---
EXAM: CT chest with contrast - pulmonary embolus protocol CLINICAL HISTORY: Chest pain and shortness of breath, elevated d-dimer COMPARISON: Ultrasound abdomen 08/14/2019. TECHNIQUE: CT of the chest following the administration of intravenous contrast during the pulmonary arterial phase. Axial, coronal and sagittal reformatted images were generated including MIP images. ---PQRS compliance statement - One or more of the following individualized dose reduction techniques were utilized for this study: 1. Automated exposure control 2. Adjustment of the mA and/or kV according to patient size 3. Use of iterative reconstruction technique--- FINDINGS: CHEST: Diagnostic quality: Nondiagnostic. Suboptimal contrast bolus. Pulmonary emboli: None seen Right heart strain: None Pulmonary arteries: Normal in caliber. Heart is not enlarged. No pericardial effusion. No pleural effusion or pneumothorax. No mediastinal or hilar lymphadenopathy. Anterior mediastinal soft tissue triangular density, likely residual thymus. Scattered calcified granulomas are seen. Visualized Upper abdomen: Upper abdomen is grossly unremarkable. Bones: No aggressive osseous lesion is seen. Evaluation of the bones is limited given MIP reconstructions. IMPRESSION: 1. Examination is nondiagnostic for the evaluation of acute pulmonary embolus. 2. Calcified granuloma are seen bilaterally. 3. No thoracic lymphadenopathy. Electronically signed by: Lyle Burrows MD (08/15/2019 12:06 AM) [id number]
--- NOTE | 2019-08-15 05:25 | EKG ---
[facility] [address] [place] [address] Test Date: 2019-08-14 Test Time: 21:57:11 Pat Name: PARISA PETE Department: Room: Gender: F [employer]: : 1980 Requested By: OLGA LIDIA JORDAN Order Number: [id number] Reading MD: Measurements Intervals [place] Rate: 62 P: 35 AL: 156 QRS: 27 QRSD: 80 T: 16 QT: 404 QTc: 412 Interpretive Statements SINUS RHYTHM NO SPECIFIC ECG ABNORMALITIES RI6.01 No previous ECG available for comparison
== END 2019-08-15 00:25 | disposition home or self-care (01) ==
LOC: ER 21:49
DX: R07.89 Other chest pain (principal); R06.02 Shortness of breath; R42 Dizziness and giddiness; I10 Essential (primary) hypertension; Z90.710 Acquired absence of both cervix and uterus; Z79.82 Long term (current) use of aspirin
CPT/HCPCS: 36415; 71045; 71275; 76705; 80053; 82550; 83690; 83735; 83880; 84443; 84484; 85025; 85379; 85610; 93005; 99285; Q9967

== ENCOUNTER 2019-09-10 01:42 | Inpatient (IN) | payer OTHER ==
[~2019-09-10] VITALS: Ht 160 cm; Wt 97.4 kg
[2019-09-10] MEDS ORDERED: IV NORMAL SALINE 1000ML BAG 1,000 ML IV ONE (01:45)
[2019-09-10 02:15] LABS: BASO % 0 % (0-3); EOS % 0 % (0-3); HEMOGLOBIN 13.6 g/dL (12.0-15.5); LYMPH # 1.7 x10^3/uL (1.0-4.8); LYMPH % 33 % (24-48); MEAN CORPUSCULAR HEMOGLOBIN 29 pg (25-35); MEAN CORPUSCULAR HGB CONC 34 g/dL (31-37); MEAN CORPUSCULAR VOLUME 84 fL (79-100); MONO # 0.3 x10^3/uL (0.0-1.1); MONO % 6 % (0-9); NEUT # 3.1 x10^3/uL (1.8-7.7); NEUT % 61 % (31-73); PLATELET COUNT 218 x10^3/uL (140-400); RED BLOOD COUNT 4.74 x10^6/uL (3.50-5.40); RED CELL DISTRIBUTION WIDTH 13.6 % (11.5-14.5); WHITE BLOOD COUNT 5.1 x10^3/uL (4.0-11.0)
[2019-09-10 02:20] LABS: PROTHROMBIN TIME PATIENT 11.8 SEC (11.7-14.0)
--- NOTE | 2019-09-10 02:20 | PHYS DOC ---
Past Medical History Past Medical History: Hypertension Past Surgical History: Hysterectomy, Tubal ligation Smoking Status: Never Smoker Alcohol Use: Rarely Drug Use: None Adult General Chief Complaint Chief Complaint: SHORTNESS OF BREATH HPI HPI 38-year-old female presents with progressive shortness of breath that has been ongoing times one week. Patient reports had a positive COVID-19 test per her PCP. Patient reports she has been using an inhaler at home without improvement. Patient reports associated fever, chills, and generalized malaise. 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 Denies history of COPD or asthma. Reports has been self quarantining but tonight she felt she "couldn't breath". Review of Systems Review of Systems Constitutional: Reports fever, chills, and generalized malaise Eyes: Denies redness or eye pain HENT: Denies nasal congestion or sore throat Respiratory: Reports cough and shortness of breath Cardiovascular: Reports chest pain; denies palpitations GI: Denies abdominal pain, nausea, or vomiting : Denies dysuria or hematuria Musculoskeletal: Denies back pain or joint pain Integument: Denies rash or skin lesions Neurologic: Denies headache, focal weakness or sensory changes Complete systems were reviewed and found to be within normal limits, except as documented in this note. Current Medications Current Medications Current Medications Medications (Trade) Dose Ordered Sig/Dana Start Time Stop Time Status Last Admin Dose Admin Azithromycin 250 ml @ 250 mls/hr 1X ONCE 09/10/19 03:15 09/10/19 04:14 DC 09/10/19 03:32 250 MLS/HR Ceftriaxone Sodium (Rocephin) 1 gm 1X ONCE 09/10/19 03:15 09/10/19 03:16 DC 09/10/19 03:32 1 GM Sodium Chloride 1,000 ml @ 1,000 mls/hr 1X ONCE 09/10/19 01:45 09/10/19 02:44 DC 09/10/19 01:50 1,000 MLS/HR Allergies Allergies Allergies Coded Allergies Type Severity Reaction Last Updated Verified No Known Drug Allergies 11/15/18 No Physical Exam Physical Exam Constitutional: Well developed, well nourished, no acute distress, non-toxic appearance HENT: Normocephalic, atraumatic Eyes: Conjunctiva normal, no discharge Neck: Normal range of motion, no tenderness, supple Cardiovascular: Heart rate normal, regular rhythm Lungs & Thorax: Bilateral breath sounds diminished at bases, no wheezing, tachypnea, increased work of breathing Abdomen: Soft, no tenderness Skin: Warm, dry, no erythema, no rash Extremities: No tenderness, ROM intact, trace bilateral lower extremity edema Neurologic: Alert and oriented X 3, no focal deficits noted Psychologic: Affect anxious, judgment normal Current Patient Data Vital Signs Vital Signs Date Time Temp Pulse Resp B/P (MAP) Pulse Ox O2 Delivery O2 Flow Rate FiO2 09/10/19 01:44 98.3 95 22 155/97 (116) 97 Room Air 98.3 Lab Values Laboratory Tests Test 09/10/19 01:57 09/10/19 03:04 White Blood Count 5.1 x10^3/uL (4.0-11.0) Red Blood Count 4.74 x10^6/uL (3.50-5.40) Hemoglobin 13.6 g/dL (12.0-15.5) Hematocrit 40.0 % (36.0-47.0) Mean Corpuscular Volume 84 fL (79-100) Mean Corpuscular Hemoglobin 29 pg (25-35) Mean Corpuscular Hemoglobin Concent 34 g/dL (31-37) Red Cell Distribution Width 13.6 % (11.5-14.5) Platelet Count 218 x10^3/uL (140-400) Neutrophils (%) (Auto) 61 % (31-73) Lymphocytes (%) (Auto) 33 % (24-48) Monocytes (%) (Auto) 6 % (0-9) Eosinophils (%) (Auto) 0 % (0-3) Basophils (%) (Auto) 0 % (0-3) Neutrophils # (Auto) 3.1 x10^3/uL (1.8-7.7) Lymphocytes # (Auto) 1.7 x10^3/uL (1.0-4.8) Monocytes # (Auto) 0.3 x10^3/uL (0.0-1.1) Eosinophils # (Auto) 0.0 x10^3/uL (0.0-0.7) Basophils # (Auto) 0.0 x10^3/uL (0.0-0.2) Prothrombin Time 11.8 SEC (11.7-14.0) Prothrombin Time INR 0.9 (0.8-1.1) Activated Partial Thromboplast Time 33 SEC (24-38) D-Dimer (Elodia) 2.11 ug/mlFEU (0.00-0.50) H Sodium Level 136 mmol/L (136-145) Potassium Level 3.3 mmol/L (3.5-5.1) L Chloride Level 100 mmol/L (98-107) Carbon Dioxide Level 23 mmol/L (21-32) Anion Gap 13 (6-14) Blood Urea Nitrogen 12 mg/dL (7-20) Creatinine 1.0 mg/dL (0.6-1.0) Estimated GFR (Cockcroft-Gault) 74.7 BUN/Creatinine Ratio 12 (6-20) Glucose Level 111 mg/dL (70-99) H Lactic Acid Level 1.5 mmol/L (0.4-2.0) Calcium Level 9.1 mg/dL (8.5-10.1) Magnesium Level 1.8 mg/dL (1.8-2.4) Ferritin 96 ng/mL (8-252) Total Bilirubin 0.2 mg/dL (0.2-1.0) Aspartate Amino Transferase (AST) 48 U/L (15-37) H Alanine Aminotransferase (ALT) 52 U/L (14-59) Alkaline Phosphatase 87 U/L (46-116) Lactate Dehydrogenase 222 U/L (81-234) Creatine Kinase 93 U/L (26-192) Creatine Kinase MB (Mass) < 0.5 ng/mL (0.0-3.6) Creatine Kinase MB Relative Index % (0-4) Troponin I Quantitative < 0.017 ng/mL (0.000-0.055) IH-Hjb-H-Type Natriuretic Peptide 26 pg/mL (0-124) Total Protein 8.4 g/dL (6.4-8.2) H Albumin 3.9 g/dL (3.4-5.0) Albumin/Globulin Ratio 0.9 (1.0-1.7) L Procalcitonin < 0.10 ng/mL (0.00-0.10) Urine Collection Type Unknown Urine Color Yellow Urine Clarity Clear Urine pH 7.0 (<5.0-8.0) Urine Specific [place] <=1.005 (1.000-1.030) Urine Protein Negative mg/dL (NEG-TRACE) Urine Glucose (UA) Negative mg/dL (NEG) Urine Ketones (Stick) Negative mg/dL (NEG) Urine Blood Negative (NEG) Urine Nitrite Negative (NEG) Urine Bilirubin Negative (NEG) Urine Urobilinogen Dipstick 0.2 mg/dL (0.2 mg/dL) Urine Leukocyte Esterase Negative (NEG) Urine RBC 0 /HPF (0-2) Urine WBC 0 /HPF (0-4) Urine Squamous Epithelial Cells Few /LPF Urine Bacteria 0 /HPF (0-FEW) Laboratory Tests 09/10/19 01:57 Laboratory Tests 09/10/19 01:57 EKG EKG @0204 NSR at 87 bpm, NO ST elevation, QRS 86ms, QT/QTc 382/460ms, Q wave in III. Radiology/Procedures Radiology/Procedures PROCEDURE: PORTABLE CHEST 1V EXAM: CHEST ONE VIEW. HISTORY: Shortness of breath, COVID. COMPARISON: 08/14/2019. FINDINGS: A frontal view of the chest is obtained. There are small regions of consolidation in the right base and retrocardiac territory. There is no pneumothorax or pleural effusion. The heart is not enlarged. IMPRESSION: 1. Small focal airspace infiltrates in the right base and retrocardiac distribution. Electronically signed by: Nicholas Banks MD (09/10/2019 3:07 AM) [facility] PROCEDURE: CT ANGIOGRAPHY CHEST EXAM: CT ANGIOGRAPHY OF THE CHEST WITH AND WITHOUT CONTRAST. HISTORY: Shortness of breath, elevated d-dimer, COVID-19. TECHNIQUE: Computed tomographic angiography of the chest was performed before and after the intravenous administration of iodinated contrast. 3-D maximum intensity projections were also performed. One or more of the following individualized dose reduction techniques were utilized for this examination: 1. Automated exposure control. 2. Adjustment of the mA and/or kV according to patient size. 3. Use of iterative reconstruction technique. COMPARISON: 08/14/2019. FINDINGS: Images of the upper abdomen reveal scattered calcified hepatic granulomas. Bone windows reveal no suspicious lesions. Suboptimal opacification of the pulmonary arterial tree limits sensitivity for small peripheral pulmonary emboli. None are seen. There is no aortic dissection or aneurysm. There is a common origin of the left common carotid and brachiocephalic arteries, a variant of normal. Soft tissue density within the anterior mediastinal fat is consistent with a thymic remnant or rebound thymic hyperplasia. There are no pathologically enlarged mediastinal or axillary lymph nodes. There are trace bilateral pleural effusions. There is no pericardial effusion. The heart is not enlarged. Scattered small to moderate regions of groundglass infiltrate and consolidation involving all lobes are typical of COVID-19 infection. There are calcified granulomas in the right middle and left upper lobes. IMPRESSION: 1. No pulmonary embolism. 2. Scattered regions of groundglass infiltrate and consolidation involving all lobes are typical of COVID-19 infection. Electronically signed by: Nicholas Banks MD (09/10/2019 4:16 AM) [facility] Course & Med Decision Making Course & Med Decision Making Pertinent Labs and Imaging studies reviewed. (See chart for details) Patient presents with report of known positive COVID-19 with worsening SOA. Patient has been self quarantining and tonight felt she couldn't breath and was having chest pain. Sats stable upon arrival. Increased work of breathing noted. Labs obtained and posted to chart. Hypokalemia addressed. Troponin WNL. HEART score 1. WBC and lactic acid WNL. Troponin WNL. HEART score 1. EKG stable. CXR with right sided infiltrates. Empiric antibiotics given to prevent suprainfection. CTA chest obtained without signs of PE but with findings consistent for COVID-19 pneumonia. Patient requiring admission for further evaluation and treatment. Discussed with Dr. Wright (hospitalist) who is in agreement with admission. Discussed findings and plan with patient, who acknowledges understanding and agreement. Dragon Disclaimer Dragon Disclaimer This electronic medical record was generated, in whole or in part, using a voice recognition dictation system. Departure Departure Impression: Primary Impression: Dyspnea Additional Impressions: Pneumonia due to COVID-19 virus Hypokalemia Disposition: ADMITTED INPATIENT Admitting Physician: OSIEL (Adriana) Condition: STABLE Referrals: JULIANO PRITCHETT MD (PCP) The HEART Score for CP Pts HEART Score for Chest Pain: HEART Score for Chest Pain Response (Comments) Value History Slighlty/Non-Suspicious 0 ECG Normal 0 Age < 45 0 Risk Factors 1 or 2 Risk Factors 1 Troponin < Normal Limit 0 Total 1 Risk Factors: Risk Factors: DM, Current or recent (<one month) smoker, HTN, HLP, family history of CAD, obesity. Risk Scores: Score 0 - 3: 2.5% MACE over next 6 weeks - Discharge Home Score 4 - 6: 20.3% MACE over next 6 weeks - Admit for Clinical Observation Score 7 - 10: 72.7% MACE over next 6 weeks - Early Invasive Strategies Problem Qualifiers Primary Impression: Dyspnea Dyspnea type: unspecified Qualified Codes: R06.00 - Dyspnea, unspecified HEATHER SNOWDEN DO Sep 10, 2019 02:20
[2019-09-10 02:23] LABS: D-DIMER 2.11 ug/mlFEU (0.00-0.50)
[2019-09-10 02:27] LABS: CALCIUM 9.1 mg/dL (8.5-10.1); GFR 74.7; POTASSIUM 3.3 mmol/L (3.5-5.1)
[2019-09-10 02:31] LABS: ALBUMIN 3.9 g/dL (3.4-5.0); ALBUMIN/GLOBULIN RATIO 0.9 (1.0-1.7); TOTAL BILIRUBIN 0.2 mg/dL (0.2-1.0); TOTAL PROTEIN 8.4 g/dL (6.4-8.2)
[2019-09-10 02:36] LABS: CREATINE KINASE 93 U/L (26-192)
--- NOTE | 2019-09-10 03:10 | RAD ---
EXAM: CHEST ONE VIEW. HISTORY: Shortness of breath, COVID. COMPARISON: 08/14/2019. FINDINGS: A frontal view of the chest is obtained. There are small regions of consolidation in the right base and retrocardiac territory. There is no pneumothorax or pleural effusion. The heart is not enlarged. IMPRESSION: 1. Small focal airspace infiltrates in the right base and retrocardiac distribution. Electronically signed by: Nicholas Banks MD (09/10/2019 3:07 AM) [facility]
[2019-09-10 03:14] LABS: BILIRUBIN,URINE NEGATIVE (NEG); CLARITY,URINE CLEAR; COLOR,URINE YELLOW; NITRITE,URINE NEGATIVE (NEG); PROTEIN,URINE NEGATIVE (NEG-TRACE); UROBILINOGEN,URINE 0.2 mg/dL (0.2 mg/dL)
[2019-09-10] MEDS ORDERED: cefTRIAXone IV Push 1 GM VIAL. IVP ONE (03:15)
[2019-09-10] MEDS ORDERED: AZITHRMYCN 500MG IVPB FOR OMNI 250 ML IV ONE (03:15)
[2019-09-10 03:19] LABS: SQUAMOUS EPITHELIAL CELL,UR FEW /LPF
[2019-09-10 03:20] LABS: BACTERIA,URINE 0 /HPF (0-FEW); RBC,URINE 0 /HPF (0-2); WBC,URINE 0 /HPF (0-4)
--- NOTE | 2019-09-10 03:22 | EKG ---
[facility] [address] [place] [address] Test Date: 2019-09-10 Test Time: 02:04:16 Pat Name: PARISA PETE Department: Room: Gender: F Director Medical Economics: : 1980 Requested By: HEATHER SNOWDEN Order Number: [id number] Reading MD: Regis Adams MD Measurements Intervals [place] Rate: 87 P: 36 HI: 140 QRS: 26 QRSD: 86 T: 15 QT: 382 QTc: 460 Interpretive Statements SINUS RHYTHM Electronically Signed On 09-10-2019 9:38:55 CDT by Regis Adams MD
[2019-09-10] MEDS ORDERED: POTASSIUM CHLORIDE 20 MEQ TABLET.ER. PO ONE (03:30)
[2019-09-10] MEDS ORDERED: IOHEXOL 350 MG/ML 100 ML VIAL. IV ONE (03:45)
[2019-09-10] MEDS ORDERED: CONTRAST GIVEN. MC PRN (03:45)
[2019-09-10] MEDS ORDERED: ACETAMINOPHEN 325 MG TABLET. PO PRN (04:00)
[2019-09-10] MEDS ORDERED: ONDANSETRON PF 4 MG/2 ML VIAL. IV PRN (04:00)
--- NOTE | 2019-09-10 04:19 | RAD ---
EXAM: CT ANGIOGRAPHY OF THE CHEST WITH AND WITHOUT CONTRAST. HISTORY: Shortness of breath, elevated d-dimer, COVID-19. TECHNIQUE: Computed tomographic angiography of the chest was performed before and after the intravenous administration of iodinated contrast. 3-D maximum intensity projections were also performed. One or more of the following individualized dose reduction techniques were utilized for this examination: 1. Automated exposure control. 2. Adjustment of the mA and/or kV according to patient size. 3. Use of iterative reconstruction technique. COMPARISON: 08/14/2019. FINDINGS: Images of the upper abdomen reveal scattered calcified hepatic granulomas. Bone windows reveal no suspicious lesions. Suboptimal opacification of the pulmonary arterial tree limits sensitivity for small peripheral pulmonary emboli. None are seen. There is no aortic dissection or aneurysm. There is a common origin of the left common carotid and brachiocephalic arteries, a variant of normal. Soft tissue density within the anterior mediastinal fat is consistent with a thymic remnant or rebound thymic hyperplasia. There are no pathologically enlarged mediastinal or axillary lymph nodes. There are trace bilateral pleural effusions. There is no pericardial effusion. The heart is not enlarged. Scattered small to moderate regions of groundglass infiltrate and consolidation involving all lobes are typical of COVID-19 infection. There are calcified granulomas in the right middle and left upper lobes. IMPRESSION: 1. No pulmonary embolism. 2. Scattered regions of groundglass infiltrate and consolidation involving all lobes are typical of COVID-19 infection. Electronically signed by: Nicholas Banks MD (09/10/2019 4:16 AM) [facility]
[2019-09-10 05:20] VITALS: BP 123/78
[2019-09-10 07:00] VITALS: BP 118/58
[2019-09-10 10:40] VITALS: BP 131/76
[2019-09-10] MEDS ORDERED: PIP/TAZO PER PHARMACY MC PRN (12:30)
--- NOTE | 2019-09-10 12:42 | HP ---
ADMIT DATE: 09/10/2019 CHIEF COMPLAINT: Shortness of breath. HISTORY OF PRESENT ILLNESS: The patient is a pleasant 38-year-old female who has been short of breath for over a week. She went to her primary care doctor and got tested for COVID-19. It was apparently positive. Basically, she has failed outpatient therapy. I discussed the case with ER physician. We have admitted her with COVID-19 protocol. PAST MEDICAL HISTORY: Hypertension, hyperlipidemia, hysterectomy, tubal ligation. ALLERGIES: None. FAMILY HISTORY: Diabetes. SOCIAL HISTORY: She works in our Emergency Room in admissions. She does not drink, smoke or take drugs. MEDICATIONS: Reviewed, please refer to the MRAD. REVIEW OF SYSTEMS: GENERAL: No history of weight change, weakness or fevers. SKIN: No bruising, hair changes or rashes. EYES: No blurred, double or loss of vision. NOSE AND THROAT: No history of nosebleeds, hoarseness or sore throat. HEART: No history of palpitations, chest pain or shortness of breath on exertion. LUNGS: The patient complaints of shortness of breath. GASTROINTESTINAL: Denies changes in appetite, nausea, vomiting, diarrhea or constipation. GENITOURINARY: No history of frequency, urgency, hesitancy or nocturia. NEUROLOGIC: Denies history of numbness, tingling, tremor or weakness. PSYCHIATRIC: No history of panic, anxiety or depression. ENDOCRINE: No history of heat or cold intolerance, polyuria or polydipsia. EXTREMITIES: Denies muscle weakness, joint pain, pain on walking or stiffness. PHYSICAL EXAMINATION: VITALS: Within normal limits and are stable. GENERAL: No apparent distress. Alert and oriented. HEENT: Normal cephalic atraumatic, external auditory canals are patent EYES: Extraocular muscles are intact, pupils are equally round and reactive to light and accommodation MUSCULOSKELETAL: Well developed, well nourished, good range of motion ENDOCRINE: No thyromegaly was palpated LYMPHATICS: No cervical chain or axillary nodes were noted HEMATOPOIETIC: No bruising NECK: Supple, no JVD, no thyromegaly was noted. LUNGS: She has decreased breath sounds with crackles. HEART: RRR, S1, S2 present. Peripheral pulses intact, no obvious murmurs were noted. ABDOMEN: Soft, nontender. Positive bowel sounds no organomegaly, normal bowel sounds. EXTREMITIES: Without any cyanosis, clubbing, or edema. Pedal pulses intact, Homans sign is negative. NEUROLOGIC: Normal speech, normal tone. A & O x3, moves all extremities, no obvious focal deficits. PSYCHIATRIC: Normal affect, normal mood. Stable. SKIN: No ulcerations or rashes, good skin turgor, no jaundice. VASCULAR: Good capillary refill, neurovascular bundle appears to be intact. LABORATORY DATA: Hematology is normal. Electrolytes are normal. Troponin is 0. Urinalysis negative. D-dimer 2.11. Chest x-ray shows small focal airspace infiltrates in the right base and retrocardiac distribution. CT of the chest shows scattered regions of ground glass infiltrates typical of COVID-19 infection. ASSESSMENT AND PLAN: COVID-19 with respiratory failure. The patient has been admitted with COVID-19 protocol. Consult Infectious Disease. Consult Pulmonary. She already got 1 dose of azithromycin and Rocephin in the ER. We will consider Plaquenil and vitamin C and zinc, home meds, DVT prophylaxis. Full code. Valeriano. DOMINIC ANDRADE DO DR: BRYANNA/teetee JOB#: [id number] / [id number]
[2019-09-10] MEDS ORDERED: PIPERACILLIN/TAZOBACTAM 3.375 GM in IV NORMAL SALINE 50ML 50 ML IV SCH (13:00)
[2019-09-10] MEDS: AZITHROMYCIN 500 MG in IV NORMAL SALINE 250ML 250 ML IV SCH (13:17)
[2019-09-10] MEDS: ASCORBIC ACID 500 MG TABLET PO SCH (13:17)
[2019-09-10] MEDS: ZINC SULFATE 220 MG CAPSULE. PO SCH (13:17)
--- NOTE | 2019-09-10 13:20 | PDOC ---
Infectious Disease Note Vital Signs: Vital Signs Vital Signs Date Time Temp Pulse Resp B/P (MAP) Pulse Ox O2 Delivery O2 Flow Rate FiO2 09/10/19 10:40 98.6 83 24 131/76 (94) 98 Room Air 98.6 Medications: Inpatient Meds: Current Medications Medications (Trade) Dose Ordered Sig/Dana Start Time Stop Time Status Last Admin Dose Admin Acetaminophen (Tylenol) 650 mg PRN Q4HRS PRN 09/10/19 04:00 09/11/19 03:59 Ascorbic Acid (Vitamin C) 500 mg DAILY 09/10/19 13:00 Azithromycin 250 ml @ 250 mls/hr 1X ONCE 09/10/19 03:15 09/10/19 04:14 DC 09/10/19 03:32 250 MLS/HR Azithromycin 500 mg/Sodium Chloride 250 ml @ 250 mls/hr Q24H 09/10/19 13:00 09/14/19 13:59 Ceftriaxone Sodium (Rocephin) 1 gm 1X ONCE 09/10/19 03:15 09/10/19 03:16 DC 09/10/19 03:32 1 GM Info (CONTRAST GIVEN -- Rx MONITORING) 1 each PRN DAILY PRN 09/10/19 03:45 09/12/19 03:44 Iohexol (Omnipaque 350 Mg/ml) 100 ml 1X ONCE 09/10/19 03:45 09/10/19 03:46 DC 09/10/19 03:34 100 ML Ondansetron HCl (Zofran) 4 mg PRN Q8HRS PRN 09/10/19 04:00 09/11/19 03:59 Piperacillin Sod/ Tazobactam Sod (Zosyn Per Pharmacy) 1 each PRN DAILY PRN 09/10/19 12:30 Piperacillin Sod/ Tazobactam Sod 3.375 gm/Sodium Chloride 50 ml @ 100 mls/hr Q6HRS 09/10/19 13:00 Potassium Chloride (Klor-Con) 40 meq 1X ONCE 09/10/19 03:30 09/10/19 03:31 DC 09/10/19 03:30 40 MEQ Sodium Chloride 1,000 ml @ 1,000 mls/hr 1X ONCE 09/10/19 01:45 09/10/19 02:44 DC 09/10/19 01:50 1,000 MLS/HR Zinc Sulfate (Orazinc) 220 mg DAILY 09/10/19 13:00 Labs: Lab Laboratory Tests Test 09/10/19 01:57 09/10/19 03:04 09/10/19 06:49 09/10/19 09:35 White Blood Count 5.1 x10^3/uL (4.0-11.0) Red Blood Count 4.74 x10^6/uL (3.50-5.40) Hemoglobin 13.6 g/dL (12.0-15.5) Hematocrit 40.0 % (36.0-47.0) Mean Corpuscular Volume 84 fL (79-100) Mean Corpuscular Hemoglobin 29 pg (25-35) Mean Corpuscular Hemoglobin Concent 34 g/dL (31-37) Red Cell Distribution Width 13.6 % (11.5-14.5) Platelet Count 218 x10^3/uL (140-400) Neutrophils (%) (Auto) 61 % (31-73) Lymphocytes (%) (Auto) 33 % (24-48) Monocytes (%) (Auto) 6 % (0-9) Eosinophils (%) (Auto) 0 % (0-3) Basophils (%) (Auto) 0 % (0-3) Neutrophils # (Auto) 3.1 x10^3/uL (1.8-7.7) Lymphocytes # (Auto) 1.7 x10^3/uL (1.0-4.8) Monocytes # (Auto) 0.3 x10^3/uL (0.0-1.1) Eosinophils # (Auto) 0.0 x10^3/uL (0.0-0.7) Basophils # (Auto) 0.0 x10^3/uL (0.0-0.2) Prothrombin Time 11.8 SEC (11.7-14.0) Prothromb Time International Ratio 0.9 (0.8-1.1) Activated Partial Thromboplast Time 33 SEC (24-38) D-Dimer (Elodia) 2.11 ug/mlFEU (0.00-0.50) Sodium Level 136 mmol/L (136-145) Potassium Level 3.3 mmol/L (3.5-5.1) Chloride Level 100 mmol/L (98-107) Carbon Dioxide Level 23 mmol/L (21-32) Anion Gap 13 (6-14) Blood Urea Nitrogen 12 mg/dL (7-20) Creatinine 1.0 mg/dL (0.6-1.0) Estimated GFR (Cockcroft-Gault) 74.7 BUN/Creatinine Ratio 12 (6-20) Glucose Level 111 mg/dL (70-99) Lactic Acid Level 1.5 mmol/L (0.4-2.0) Calcium Level 9.1 mg/dL (8.5-10.1) Magnesium Level 1.8 mg/dL (1.8-2.4) Ferritin 96 ng/mL (8-252) Total Bilirubin 0.2 mg/dL (0.2-1.0) Aspartate Amino Transf (AST/SGOT) 48 U/L (15-37) Alanine Aminotransferase (ALT/SGPT) 52 U/L (14-59) Alkaline Phosphatase 87 U/L (46-116) Lactate Dehydrogenase 222 U/L (81-234) Creatine Kinase 93 U/L (26-192) Creatine Kinase MB (Mass) < 0.5 ng/mL (0.0-3.6) Creatine Kinase MB Relative Index % (0-4) Troponin I Quantitative < 0.017 ng/mL (0.000-0.055) < 0.017 ng/mL (0.000-0.055) < 0.017 ng/mL (0.000-0.055) RJ-Cyd-T-Type Natriuretic Peptide 26 pg/mL (0-124) Total Protein 8.4 g/dL (6.4-8.2) Albumin 3.9 g/dL (3.4-5.0) Albumin/Globulin Ratio 0.9 (1.0-1.7) Procalcitonin < 0.10 ng/mL (0.00-0.10) Urine Collection Type Unknown Urine Color Yellow Urine Clarity Clear Urine pH 7.0 (<5.0-8.0) Urine Specific [place] <=1.005 (1.000-1.030) Urine Protein Negative mg/dL (NEG-TRACE) Urine Glucose (UA) Negative mg/dL (NEG) Urine Ketones (Stick) Negative mg/dL (NEG) Urine Blood Negative (NEG) Urine Nitrite Negative (NEG) Urine Bilirubin Negative (NEG) Urine Urobilinogen Dipstick 0.2 mg/dL (0.2 mg/dL) Urine Leukocyte Esterase Negative (NEG) Urine RBC 0 /HPF (0-2) Urine WBC 0 /HPF (0-4) Urine Squamous Epithelial Cells Few /LPF Urine Bacteria 0 /HPF (0-FEW) Objective: Assessment: Pt seen and examined ID consult dictated [id number] Plan: Plan of Care cont z negrita, restart hydroxychloroquine s/e and rationale for tx d/w pt dc zosyn restart ceftriaxone, will dc latter soon cont supportive care Thank you VÍCTOR MEDEROS MD Sep 10, 2019 13:20
--- NOTE | 2019-09-10 13:52 | CONS ---
DATE OF CONSULTATION: 09/10/2019 REFERRING PHYSICIAN: Dr. Degroot. REASON FOR CONSULTATION: COVID positive. 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 She was tested positive by her PCP last Monday for COVID-19. She did not feel better with cough, and did not improve with inhalers at home. She also had associated fevers, chills, generalized ache. She was given azithromycin, which she started this Monday along with hydroxychloroquine. Since she also had some chest discomfort, she presented to the ER. She was afebrile. White count was 5.1, lymphocyte was 1.7. D-dimer was elevated at 2.11. Lactate of 1.5, AST 48, ALT 52, alkaline phosphatase 87, LDH 222. CK 93. Troponin was normal. Procalcitonin less than 0.10. UA was negative. She underwent chest x-ray, which showed small focal airspace infiltrate in the right base and retrocardiac distribution. Chest CT showed no pulmonary embolism, scattered areas of ground-glass infiltrate and consolidation involving all lobes are typical of COVID-19 infection. The patient was given a dose of azithromycin and ceftriaxone in the ER, she was started on Zosyn, continued on azithromycin. ID consult has been requested for further evaluation and treatment. Today, the patient states she still has chest pain, remains on room air. Denies any fevers, chills, nausea, vomiting, sore throat, difficulty swallowing, headache, GI upset, symptoms, rash, joint pain, though feels achy all over. Her appetite remains poor. She has been compliant with hydroxychloroquine and azithromycin at home. PAST MEDICAL HISTORY: Hypertension and hyperlipidemia. REVIEW OF SYSTEMS: Negative except for above in HPI. CURRENT MEDICATIONS: Zosyn. As above, received one dose of azithromycin, ceftriaxone in the ER, had been on hydroxychloroquine and azithromycin at home. ALLERGIES: No known drug allergies. SOCIAL HISTORY: Denies smoking, ETOH, or illicit drug use. Lives at home. 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 PHYSICAL EXAMINATION: VITAL SIGNS: Temperature 98.6, pulse 83, respiratory rate 24, blood pressure 131/76, oxygen saturation 98% on room air, T-max 99.1. GENERAL: Alert and oriented x 3. Tired appearing female, lying in bed comfortably, in no acute distress, talking on phone. HEENT: Normocephalic, atraumatic, anicteric. No thrush. Oral mucosa moist. NECK: Supple, no JVD. LUNGS: Decreased breath sounds at the bases. No wheezing, no accessory muscle use. HEART: S1, S2. No gallops or murmurs. ABDOMEN: Soft, nontender, nondistended, no rebound, no guarding. EXTREMITIES: No edema, no cyanosis, no clubbing. DERMATOLOGIC: Warm and dry. No generalized rash. NEUROLOGIC: Alert and oriented x 3, grossly nonfocal. PSYCHIATRIC: Cooperative, appropriate mood and affect. LABORATORY DATA: WBC 5.1, hemoglobin 13.6, hematocrit 40.0, platelets 210, lymphocyte 33. Sodium 136, potassium 3.3, chloride 100, bicarbonate 23, BUN 12, creatinine 1.0, glucose 111. Lactate 1.5, calcium 9.1, AST 48, ALT 52, alkaline phosphatase 87, LDH 222. CK 93. Total protein 8.4, albumin 0.9. Troponin normal. UA negative. IMAGING: Chest x-ray as above. Chest CT as above. IMPRESSION: 1. COVID-19 acute respiratory illness. 2. Dyspnea and chest discomfort. 3. Elevated D-dimer. CT chest shows no pulmonary embolism, but ground-glass infiltrates. 4. Hypokalemia. 5. Hypertension. 6. Hyperlipidemia. RECOMMENDATIONS: 1. Continue azithromycin.Pt had been on since 09/07 2. Restart Plaquenil through 09/13/2019. 3. Discontinue Zosyn. 4. Restart ceftriaxone, we will deescalate soon. 5. Follow up labs and cultures. 6. Continue supportive care. 7. Maintain airborne isolation Thank you, Dr. Degroot, for consulting Infectious Disease to participate in this patient's care. If you have any questions, do not hesitate to contact me. Discuss with nursing staff. VÍCTOR MEDEROS MD DR: BERTO/teetee JOB#: [id number] / [id number] MTDD
[2019-09-10] MEDS ORDERED: MORPHINE SULFATE 2 MG/ML VIAL. IV ONE ×2 (14:00→14:15)
[2019-09-10] MEDS ORDERED: cefTRIAXone IV Push 1 GM VIAL. IVP SCH (14:00)
[2019-09-10] MEDS ORDERED: NITROGLYCERIN SUBLINGUAL 0.4 MG BOTTLE OF 25. SL ONE (14:05)
[2019-09-10] MEDS ORDERED: methylPREDNISolone SOD SUCC PF 125 MG/2 ML VIAL. IV ONE (14:15)
[2019-09-10] MEDS ORDERED: diphenhydrAMINE 50 MG/ML VIAL IVP ONE (14:15)
--- NOTE | 2019-09-10 14:18 | EKG ---
[facility] [address] [place] [address] Test Date: 2019-09-10 Test Time: 14:07:35 Pat Name: PARISA PETE Department: Room: [facility] [place] Gender: F Bulk Picker: [email or web address] : [phone] Requested By: DOMINIC ANDRADE Order Number: [id number] Reading MD: Benny Ramos Measurements Intervals [place] Rate: 109 P: 1 SD: 132 QRS: 46 QRSD: 78 T: 48 QT: 320 QTc: 432 Interpretive Statements SINUS TACHYCARDIA Electronically Signed On 09-12-2019 8:41:14 CDT by Benny Ramos
[2019-09-10] MEDS: HYDROXYCHLOROQUINE (PROGRAM) 200 MG TABLET PO SCH ×2 (14:23→20:57)
--- NOTE | 2019-09-10 14:31 | PDOC ---
PULMONARY PROGRESS NOTES Vitals Vital Signs Date Time Temp Pulse Resp B/P (MAP) Pulse Ox O2 Delivery O2 Flow Rate FiO2 09/10/19 10:40 98.6 83 24 131/76 (94) 98 Room Air 98.6 Labs Laboratory Tests Test 09/10/19 01:57 09/10/19 03:04 09/10/19 06:49 09/10/19 09:35 White Blood Count 5.1 x10^3/uL (4.0-11.0) Red Blood Count 4.74 x10^6/uL (3.50-5.40) Hemoglobin 13.6 g/dL (12.0-15.5) Hematocrit 40.0 % (36.0-47.0) Mean Corpuscular Volume 84 fL (79-100) Mean Corpuscular Hemoglobin 29 pg (25-35) Mean Corpuscular Hemoglobin Concent 34 g/dL (31-37) Red Cell Distribution Width 13.6 % (11.5-14.5) Platelet Count 218 x10^3/uL (140-400) Neutrophils (%) (Auto) 61 % (31-73) Lymphocytes (%) (Auto) 33 % (24-48) Monocytes (%) (Auto) 6 % (0-9) Eosinophils (%) (Auto) 0 % (0-3) Basophils (%) (Auto) 0 % (0-3) Neutrophils # (Auto) 3.1 x10^3/uL (1.8-7.7) Lymphocytes # (Auto) 1.7 x10^3/uL (1.0-4.8) Monocytes # (Auto) 0.3 x10^3/uL (0.0-1.1) Eosinophils # (Auto) 0.0 x10^3/uL (0.0-0.7) Basophils # (Auto) 0.0 x10^3/uL (0.0-0.2) Prothrombin Time 11.8 SEC (11.7-14.0) Prothromb Time International Ratio 0.9 (0.8-1.1) Activated Partial Thromboplast Time 33 SEC (24-38) D-Dimer (Elodia) 2.11 ug/mlFEU (0.00-0.50) Sodium Level 136 mmol/L (136-145) Potassium Level 3.3 mmol/L (3.5-5.1) Chloride Level 100 mmol/L (98-107) Carbon Dioxide Level 23 mmol/L (21-32) Anion Gap 13 (6-14) Blood Urea Nitrogen 12 mg/dL (7-20) Creatinine 1.0 mg/dL (0.6-1.0) Estimated GFR (Cockcroft-Gault) 74.7 BUN/Creatinine Ratio 12 (6-20) Glucose Level 111 mg/dL (70-99) Lactic Acid Level 1.5 mmol/L (0.4-2.0) Calcium Level 9.1 mg/dL (8.5-10.1) Magnesium Level 1.8 mg/dL (1.8-2.4) Ferritin 96 ng/mL (8-252) Total Bilirubin 0.2 mg/dL (0.2-1.0) Aspartate Amino Transf (AST/SGOT) 48 U/L (15-37) Alanine Aminotransferase (ALT/SGPT) 52 U/L (14-59) Alkaline Phosphatase 87 U/L (46-116) Lactate Dehydrogenase 222 U/L (81-234) Creatine Kinase 93 U/L (26-192) Creatine Kinase MB (Mass) < 0.5 ng/mL (0.0-3.6) Creatine Kinase MB Relative Index % (0-4) Troponin I Quantitative < 0.017 ng/mL (0.000-0.055) < 0.017 ng/mL (0.000-0.055) < 0.017 ng/mL (0.000-0.055) YB-Zhh-S-Type Natriuretic Peptide 26 pg/mL (0-124) Total Protein 8.4 g/dL (6.4-8.2) Albumin 3.9 g/dL (3.4-5.0) Albumin/Globulin Ratio 0.9 (1.0-1.7) Procalcitonin < 0.10 ng/mL (0.00-0.10) Urine Collection Type Unknown Urine Color Yellow Urine Clarity Clear Urine pH 7.0 (<5.0-8.0) Urine Specific [place] <=1.005 (1.000-1.030) Urine Protein Negative mg/dL (NEG-TRACE) Urine Glucose (UA) Negative mg/dL (NEG) Urine Ketones (Stick) Negative mg/dL (NEG) Urine Blood Negative (NEG) Urine Nitrite Negative (NEG) Urine Bilirubin Negative (NEG) Urine Urobilinogen Dipstick 0.2 mg/dL (0.2 mg/dL) Urine Leukocyte Esterase Negative (NEG) Urine RBC 0 /HPF (0-2) Urine WBC 0 /HPF (0-4) Urine Squamous Epithelial Cells Few /LPF Urine Bacteria 0 /HPF (0-FEW) Laboratory Tests Test 09/10/19 01:57 09/10/19 03:04 09/10/19 06:49 09/10/19 09:35 White Blood Count 5.1 x10^3/uL (4.0-11.0) Red Blood Count 4.74 x10^6/uL (3.50-5.40) Hemoglobin 13.6 g/dL (12.0-15.5) Hematocrit 40.0 % (36.0-47.0) Mean Corpuscular Volume 84 fL (79-100) Mean Corpuscular Hemoglobin 29 pg (25-35) Mean Corpuscular Hemoglobin Concent 34 g/dL (31-37) Red Cell Distribution Width 13.6 % (11.5-14.5) Platelet Count 218 x10^3/uL (140-400) Neutrophils (%) (Auto) 61 % (31-73) Lymphocytes (%) (Auto) 33 % (24-48) Monocytes (%) (Auto) 6 % (0-9) Eosinophils (%) (Auto) 0 % (0-3) Basophils (%) (Auto) 0 % (0-3) Neutrophils # (Auto) 3.1 x10^3/uL (1.8-7.7) Lymphocytes # (Auto) 1.7 x10^3/uL (1.0-4.8) Monocytes # (Auto) 0.3 x10^3/uL (0.0-1.1) Eosinophils # (Auto) 0.0 x10^3/uL (0.0-0.7) Basophils # (Auto) 0.0 x10^3/uL (0.0-0.2) Prothrombin Time 11.8 SEC (11.7-14.0) Prothromb Time International Ratio 0.9 (0.8-1.1) Activated Partial Thromboplast Time 33 SEC (24-38) D-Dimer (Elodia) 2.11 ug/mlFEU (0.00-0.50) Sodium Level 136 mmol/L (136-145) Potassium Level 3.3 mmol/L (3.5-5.1) Chloride Level 100 mmol/L (98-107) Carbon Dioxide Level 23 mmol/L (21-32) Anion Gap 13 (6-14) Blood Urea Nitrogen 12 mg/dL (7-20) Creatinine 1.0 mg/dL (0.6-1.0) Estimated GFR (Cockcroft-Gault) 74.7 BUN/Creatinine Ratio 12 (6-20) Glucose Level 111 mg/dL (70-99) Lactic Acid Level 1.5 mmol/L (0.4-2.0) Calcium Level 9.1 mg/dL (8.5-10.1) Magnesium Level 1.8 mg/dL (1.8-2.4) Ferritin 96 ng/mL (8-252) Total Bilirubin 0.2 mg/dL (0.2-1.0) Aspartate Amino Transf (AST/SGOT) 48 U/L (15-37) Alanine Aminotransferase (ALT/SGPT) 52 U/L (14-59) Alkaline Phosphatase 87 U/L (46-116) Lactate Dehydrogenase 222 U/L (81-234) Creatine Kinase 93 U/L (26-192) Creatine Kinase MB (Mass) < 0.5 ng/mL (0.0-3.6) Creatine Kinase MB Relative Index % (0-4) Troponin I Quantitative < 0.017 ng/mL (0.000-0.055) < 0.017 ng/mL (0.000-0.055) < 0.017 ng/mL (0.000-0.055) KT-Cmv-V-Type Natriuretic Peptide 26 pg/mL (0-124) Total Protein 8.4 g/dL (6.4-8.2) Albumin 3.9 g/dL (3.4-5.0) Albumin/Globulin Ratio 0.9 (1.0-1.7) Procalcitonin < 0.10 ng/mL (0.00-0.10) Urine Collection Type Unknown Urine Color Yellow Urine Clarity Clear Urine pH 7.0 (<5.0-8.0) Urine Specific [place] <=1.005 (1.000-1.030) Urine Protein Negative mg/dL (NEG-TRACE) Urine Glucose (UA) Negative mg/dL (NEG) Urine Ketones (Stick) Negative mg/dL (NEG) Urine Blood Negative (NEG) Urine Nitrite Negative (NEG) Urine Bilirubin Negative (NEG) Urine Urobilinogen Dipstick 0.2 mg/dL (0.2 mg/dL) Urine Leukocyte Esterase Negative (NEG) Urine RBC 0 /HPF (0-2) Urine WBC 0 /HPF (0-4) Urine Squamous Epithelial Cells Few /LPF Urine Bacteria 0 /HPF (0-FEW) Medications Active Scripts Medications Dose Route/Sig Max Daily Dose Days Date Category Lisinopril-Hctz 20-25 Mg Tab (Lisinopril/Hydrochlorothiazide) 1 Each Tablet 1 Tab PO DAILY 11/09/18 Reported Amlodipine Besylate 10 Mg Tablet 10 Mg PO DAILY 11/09/18 Reported Impression . FULL NOTE DICTATED THANKS AGREE WITH CURRENT RX POSSIBLE ALLERGIC RXN TO ZOSYN SEE ORDERS FOR SOLUMEDROL/BENADRYL/MORPHINE GABRIELLA HOUGH MD Sep 10, 2019 14:31
[2019-09-10 14:51] VITALS: BP 138/85
--- NOTE | 2019-09-10 14:57 | CONS ---
DATE OF CONSULTATION: 09/10/2019 ATTENDING PHYSICIAN: Tho Degroot DO. REASON FOR CONSULTATION: The patient is seen in Pulmonary consultation at the request of Dr. Degroot for increasing shortness of breath, COVID positive. 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 She was tested positive. She came in because of increasing shortness of breath approximately a week ago. She tested positive last Monday a week ago. She is not feeling any better. She was also experiencing some chest discomfort. She was admitted. I was asked to see her in consultation. A chest x-ray was reviewed revealing evidence of a focal airspace infiltrate in the right base. A CT angiogram was performed. There was no evidence of pulmonary emboli. She had some scattered ground-glass infiltrates and consolidation involving all the lobes. Earlier today, she was given IV Zosyn. Right after the IV Zosyn, the patient started to experience severe burning type of chest discomfort mostly on the left. She has a cough, mostly nonproductive. PAST MEDICAL HISTORY: Hypertension and hyperlipidemia. REVIEW OF SYSTEMS: As indicated above, otherwise, a 10-point system was reviewed and negative. CURRENT MEDICATIONS: List was reviewed. ALLERGIES: No known drug allergies. SOCIAL HISTORY: She denies any tobacco or alcohol. PHYSICAL EXAMINATION: GENERAL: During my evaluation, she was in significant respiratory distress as a consequence of her chest pain and pressure and burning sensation. VITAL SIGNS: Her O2 saturation was 92-98%. HEENT: Eyes: The sclerae were nonicteric. NECK: Jugular venous distention was not elevated. No lymphadenopathy. CHEST: Full expansion. LUNGS: Poor airflow with no wheezes, rales or rhonchi. CARDIOVASCULAR: Regular rate and rhythm with S1, S2, no S3. ABDOMEN: Soft, nontender, nondistended. EXTREMITIES: No clubbing, cyanosis or edema. NEUROLOGIC: The patient was awake, alert, following commands. A detailed neuro exam was not performed. LABORATORY DATA: White count was normal. Hemoglobin and hematocrit were noted. Troponin level was not elevated. IMPRESSION: 1. Acute respiratory distress secondary to COVID-[address]. 2[address] chest revealing ground-glass opacities compatible with viral pneumonia. 3. Chest pain, dyspnea secondary to above. 4. Elevated D-dimer. CT chest revealed no evidence of pulmonary embolism. 5. Hypertension. 6. POSSIBLE ALLERGIC REACTION TO ZOSYN. PLAN: 1. We will continue Plaquenil. 2. Discontinue Zosyn, it sounds like the patient had an allergic reaction to it. 3. Continue Zithromax. 4. P.r.n. metered-dose inhalers. 5. Morphine p.r.n. for pain. 6. Solu-Medrol x 1. 7. Benadryl x 1. I do appreciate the privilege in sharing in the patient's care. GABRIELLA HOUGH MD DR: TANVI/teetee JOB#: [id number] / [id number]
[2019-09-10 19:00] VITALS: BP 136/92
[2019-09-10] MEDS: LACTOBACILLUS RHAMNOSUS GG 1 CAPSULE. PO SCH (20:57)
[2019-09-10 23:00] VITALS: BP 143/101
[2019-09-11 02:08] VITALS: BP 142/92
[2019-09-11 08:00] VITALS: BP 162/89
[2019-09-11] MEDS: HYDROXYCHLOROQUINE (PROGRAM) 200 MG TABLET PO SCH ×2 (08:54→20:40)
[2019-09-11] MEDS: LACTOBACILLUS RHAMNOSUS GG 1 CAPSULE. PO SCH ×2 (08:54→20:41)
[2019-09-11] MEDS: ZINC SULFATE 220 MG CAPSULE. PO SCH (08:55)
[2019-09-11] MEDS: ASCORBIC ACID 500 MG TABLET PO SCH (08:55)
[2019-09-11 11:00] VITALS: BP 140/93
--- NOTE | 2019-09-11 11:02 | PDOC ---
Infectious Disease Note Subjective: Subjective COVID positive no new issues no f/c/n/v/d still has some sob Vital Signs: Vital Signs Vital Signs Date Time Temp Pulse Resp B/P (MAP) Pulse Ox O2 Delivery O2 Flow Rate FiO2 09/11/19 08:00 96.5 74 19 162/89 (113) 97 Room Air 96.5 09/10/19 19:00 4.0 Physical Exam: PHYSICAL EXAM hands on exam not done, see primary /pulm evaluation Breathing is nonlabored Heart rhythm regular No gross swelling lower extremities bilaterally PIV Medications: Inpatient Meds: Current Medications Medications (Trade) Dose Ordered Sig/Dana Start Time Stop Time Status Last Admin Dose Admin Acetaminophen (Tylenol) 650 mg PRN Q4HRS PRN 09/10/19 04:00 09/11/19 03:59 DC Ascorbic Acid (Vitamin C) 500 mg DAILY 09/10/19 13:00 09/11/19 08:55 500 MG Azithromycin 250 ml @ 250 mls/hr 1X ONCE 09/10/19 03:15 09/10/19 04:14 DC 09/10/19 03:32 250 MLS/HR Azithromycin 500 mg/Sodium Chloride 250 ml @ 250 mls/hr Q24H 09/10/19 13:00 09/14/19 13:59 09/10/19 13:17 250 MLS/HR Ceftriaxone Sodium (Rocephin) 1 gm Q24H 09/10/19 14:00 09/10/19 17:30 1 GM Diphenhydramine HCl (Benadryl) 50 mg 1X ONCE 09/10/19 14:15 09/10/19 14:18 DC 09/10/19 14:25 50 MG Hydroxychloroquine Sulfate (Plaquenil (Med Program)) 400 mg BID 09/10/19 14:00 09/10/19 21:01 DC 09/10/19 20:57 400 MG Info (CONTRAST GIVEN -- Rx MONITORING) 1 each PRN DAILY PRN 09/10/19 03:45 09/12/19 03:44 Iohexol (Omnipaque 350 Mg/ml) 100 ml 1X ONCE 09/10/19 03:45 09/10/19 03:46 DC 09/10/19 03:34 100 ML Lactobacillus Rhamnosus (Culturelle) 1 cap BID 09/10/19 21:00 09/11/19 08:54 1 CAP Methylprednisolone Sodium Succinate (SOLU-Medrol 125MG VIAL) 125 mg 1X ONCE 09/10/19 14:15 09/10/19 14:18 DC 09/10/19 14:24 125 MG Morphine Sulfate (Morphine Sulfate) 2 mg 1X ONCE 09/10/19 14:15 09/10/19 14:18 DC 09/10/19 14:25 2 MG Nitroglycerin (Nitrostat) 0.4 mg STK-MED ONCE 09/10/19 14:05 09/10/19 14:05 DC Ondansetron HCl (Zofran) 4 mg PRN Q8HRS PRN 09/10/19 04:00 09/11/19 03:59 DC Piperacillin Sod/ Tazobactam Sod (Zosyn Per Pharmacy) 1 each PRN DAILY PRN 09/10/19 12:30 09/10/19 13:13 DC Piperacillin Sod/ Tazobactam Sod 3.375 gm/Sodium Chloride 50 ml @ 100 mls/hr Q6HRS 09/10/19 13:00 09/10/19 13:11 DC Potassium Chloride (Klor-Con) 40 meq 1X ONCE 09/10/19 03:30 09/10/19 03:31 DC 09/10/19 03:30 40 MEQ Sodium Chloride 1,000 ml @ 1,000 mls/hr 1X ONCE 09/10/19 01:45 09/10/19 02:44 DC 09/10/19 01:50 1,000 MLS/HR Zinc Sulfate (Orazinc) 220 mg DAILY 09/10/19 13:00 09/11/19 08:55 220 MG Labs: Lab Laboratory Tests Test 09/10/19 15:00 Troponin I Quantitative < 0.017 ng/mL (0.000-0.055) Objective: Assessment: 1. COVID-19 acute respiratory illness. 2. Dyspnea and chest discomfort. 3. Elevated D-dimer. CT chest shows no pulmonary embolism, but ground-glass infiltrates. 4. Hypokalemia. 5. Hypertension. 6. Hyperlipidemia. Plan: Plan of Care Continue azithromycin cont Plaquenil Discontinue ceftriaxone Follow up labs and cultures. Continue supportive care. Maintain isolation for covid 19 d/w VÍCTOR TORRES MD Sep 11, 2019 11:02
--- NOTE | 2019-09-11 11:06 | PDOC ---
PULMONARY PROGRESS NOTES Subjective Patient feels much better. Vitals Vital Signs Date Time Temp Pulse Resp B/P (MAP) Pulse Ox O2 Delivery O2 Flow Rate FiO2 09/11/19 08:00 96.5 74 19 162/89 (113) 97 Room Air 96.5 09/10/19 19:00 4.0 ROS: No Nausea, No Chest Pain, No Abdominal Pain, No Increase Cough Lungs: Clear Cardiovascular: S1, S2 Abdomen: Soft Neuro Exam: Alert Extremities: No Edema Skin: Warm Labs Laboratory Tests Test 09/10/19 01:57 09/10/19 03:04 09/10/19 06:49 09/10/19 09:35 White Blood Count 5.1 x10^3/uL (4.0-11.0) Red Blood Count 4.74 x10^6/uL (3.50-5.40) Hemoglobin 13.6 g/dL (12.0-15.5) Hematocrit 40.0 % (36.0-47.0) Mean Corpuscular Volume 84 fL (79-100) Mean Corpuscular Hemoglobin 29 pg (25-35) Mean Corpuscular Hemoglobin Concent 34 g/dL (31-37) Red Cell Distribution Width 13.6 % (11.5-14.5) Platelet Count 218 x10^3/uL (140-400) Neutrophils (%) (Auto) 61 % (31-73) Lymphocytes (%) (Auto) 33 % (24-48) Monocytes (%) (Auto) 6 % (0-9) Eosinophils (%) (Auto) 0 % (0-3) Basophils (%) (Auto) 0 % (0-3) Neutrophils # (Auto) 3.1 x10^3/uL (1.8-7.7) Lymphocytes # (Auto) 1.7 x10^3/uL (1.0-4.8) Monocytes # (Auto) 0.3 x10^3/uL (0.0-1.1) Eosinophils # (Auto) 0.0 x10^3/uL (0.0-0.7) Basophils # (Auto) 0.0 x10^3/uL (0.0-0.2) Prothrombin Time 11.8 SEC (11.7-14.0) Prothromb Time International Ratio 0.9 (0.8-1.1) Activated Partial Thromboplast Time 33 SEC (24-38) D-Dimer (Elodia) 2.11 ug/mlFEU (0.00-0.50) Sodium Level 136 mmol/L (136-145) Potassium Level 3.3 mmol/L (3.5-5.1) Chloride Level 100 mmol/L (98-107) Carbon Dioxide Level 23 mmol/L (21-32) Anion Gap 13 (6-14) Blood Urea Nitrogen 12 mg/dL (7-20) Creatinine 1.0 mg/dL (0.6-1.0) Estimated GFR (Cockcroft-Gault) 74.7 BUN/Creatinine Ratio 12 (6-20) Glucose Level 111 mg/dL (70-99) Lactic Acid Level 1.5 mmol/L (0.4-2.0) Calcium Level 9.1 mg/dL (8.5-10.1) Magnesium Level 1.8 mg/dL (1.8-2.4) Ferritin 96 ng/mL (8-252) Total Bilirubin 0.2 mg/dL (0.2-1.0) Aspartate Amino Transf (AST/SGOT) 48 U/L (15-37) Alanine Aminotransferase (ALT/SGPT) 52 U/L (14-59) Alkaline Phosphatase 87 U/L (46-116) Lactate Dehydrogenase 222 U/L (81-234) Creatine Kinase 93 U/L (26-192) Creatine Kinase MB (Mass) < 0.5 ng/mL (0.0-3.6) Creatine Kinase MB Relative Index % (0-4) Troponin I Quantitative < 0.017 ng/mL (0.000-0.055) < 0.017 ng/mL (0.000-0.055) < 0.017 ng/mL (0.000-0.055) JK-Djn-N-Type Natriuretic Peptide 26 pg/mL (0-124) Total Protein 8.4 g/dL (6.4-8.2) Albumin 3.9 g/dL (3.4-5.0) Albumin/Globulin Ratio 0.9 (1.0-1.7) Procalcitonin < 0.10 ng/mL (0.00-0.10) Urine Collection Type Unknown Urine Color Yellow Urine Clarity Clear Urine pH 7.0 (<5.0-8.0) Urine Specific [place] <=1.005 (1.000-1.030) Urine Protein Negative mg/dL (NEG-TRACE) Urine Glucose (UA) Negative mg/dL (NEG) Urine Ketones (Stick) Negative mg/dL (NEG) Urine Blood Negative (NEG) Urine Nitrite Negative (NEG) Urine Bilirubin Negative (NEG) Urine Urobilinogen Dipstick 0.2 mg/dL (0.2 mg/dL) Urine Leukocyte Esterase Negative (NEG) Urine RBC 0 /HPF (0-2) Urine WBC 0 /HPF (0-4) Urine Squamous Epithelial Cells Few /LPF Urine Bacteria 0 /HPF (0-FEW) Test 09/10/19 15:00 Troponin I Quantitative < 0.017 ng/mL (0.000-0.055) Laboratory Tests Test 09/10/19 15:00 Troponin I Quantitative < 0.017 ng/mL (0.000-0.055) Medications Active Scripts Medications Dose Route/Sig Max Daily Dose Days Date Category Lisinopril-Hctz 20-25 Mg Tab (Lisinopril/Hydrochlorothiazide) 1 Each Tablet 1 Tab PO DAILY 11/09/18 Reported Amlodipine Besylate 10 Mg Tablet 10 Mg PO DAILY 11/09/18 Reported Impression . IMPRESSION: 1. Acute respiratory distress secondary to COVID-[address]. 2[address] chest revealing ground-glass opacities compatible with viral pneumonia. 3. Chest pain, dyspnea secondary to above. 4. Elevated D-dimer. CT chest revealed no evidence of pulmonary embolism. 5. Hypertension. 6. POSSIBLE ALLERGIC REACTION TO ZOSYN. Plan . We will continue the same, possible discharge in the a.m. 1. We will continue Plaquenil. 2. Discontinue Zosyn, it sounds like the patient had an allergic reaction to it. 3. Continue Zithromax. 4. P.r.n. metered-dose inhalers. 5. Morphine p.r.n. for pain. 6. Solu-Medrol x 1. 7. Benadryl x 1. GABRIELLA HOUGH MD Sep 11, 2019 11:05
--- NOTE | 2019-09-11 11:43 | PDOC ---
[facility] PROGRESS NOTE Chief Complaint Chief Complaint Covid-19 pneumonia Respiratory failure Hypertension Hyperlipidemia History of Present Illness History of Present Illness 09-11-2019 Patient seen and examined on the Covid-19 unit She remains in respiratory isolation Chart reviewed Discussed with RN Vitals/I&O Vitals/I&O: Vital Signs Date Time Temp Pulse Resp B/P (MAP) Pulse Ox O2 Delivery O2 Flow Rate FiO2 09/11/19 08:00 96.5 74 19 162/89 (113) 97 Room Air 96.5 09/10/19 19:00 4.0 I & O 09/10/19 09/10/19 09/11/19 15:00 23:00 07:00 Intake Total 300 ml 500 ml Output Total 3 ml Balance 300 ml 497 ml Physical Exam Physical Exam: General: Oriented X3, mild distress Heart: Regular rate, Normal S1 Lungs: Wheezing, Crackles Abdomen: Normal bowel sounds Extremities: No clubbing, No cyanosis Skin: No rashes, No breakdown Labs Labs: Laboratory Tests Test 09/10/19 15:00 Troponin I Quantitative < 0.017 ng/mL (0.000-0.055) Assessment and Plan Assessmemt and Plan Problems Medical Problems: (1) Dyspnea Status: Acute (2) Hypokalemia Status: Acute (3) Pneumonia due to COVID-19 virus Status: Acute Covid-19 pneumonia Respiratory failure Hypertension Hyperlipidemia Plan IV Rocephin and IV azithromycin Hydroxychloroquine 200 p.o. twice daily I added vitamin C and zinc Home meds DVT prophylaxis Full code Appreciate subspecialist input Comment Review of Relevant I have reviewed the following items felicitas (where applicable) has been applied. Medications: Current Medications Medications (Trade) Dose Ordered Sig/Dana Route PRN Reason Start Time Stop Time Status Last Admin Dose Admin Azithromycin 500 mg/Sodium Chloride 250 ml @ 250 mls/hr Q24H IV 09/10/19 13:00 09/14/19 13:59 09/10/19 13:17 Ascorbic Acid (Vitamin C) 500 mg DAILY PO 09/10/19 13:00 09/11/19 08:55 Zinc Sulfate (Orazinc) 220 mg DAILY PO 09/10/19 13:00 09/11/19 08:55 Ceftriaxone Sodium (Rocephin) 1 gm Q24H IVP 09/10/19 14:00 09/11/19 11:37 DC 09/10/19 17:30 Hydroxychloroquine Sulfate (Plaquenil (Med Program)) 200 mg BID PO 09/11/19 09:00 09/14/19 21:01 09/11/19 08:54 Hydroxychloroquine Sulfate (Plaquenil (Med Program)) 400 mg BID PO 09/10/19 14:00 09/10/19 21:01 DC 09/10/19 20:57 Morphine Sulfate (Morphine Sulfate) 2 mg 1X ONCE IV 09/10/19 14:00 09/10/19 14:01 DC 09/10/19 14:24 Diphenhydramine HCl (Benadryl) 50 mg 1X ONCE IVP 09/10/19 14:15 09/10/19 14:18 DC 09/10/19 14:25 Morphine Sulfate (Morphine Sulfate) 2 mg 1X ONCE IV 09/10/19 14:15 09/10/19 14:18 DC 09/10/19 14:25 Methylprednisolone Sodium Succinate (SOLU-Medrol 125MG VIAL) 125 mg 1X ONCE IV 09/10/19 14:15 09/10/19 14:18 DC 09/10/19 14:24 Lactobacillus Rhamnosus (Culturelle) 1 cap BID PO 09/10/19 21:00 09/11/19 08:54 DOMINIC ANDRADE III DO Sep 11, 2019 11:43
[2019-09-11] MEDS: LISINOPRIL 20 MG TABLET PO SCH (12:22)
[2019-09-11] MEDS: hydroCHLOROthiazide 25 MG TABLET PO SCH (12:22)
[2019-09-11] MEDS: amLODIPine BESYLATE 10 MG TABLET PO SCH (12:22)
[2019-09-11] MEDS: AZITHROMYCIN 500 MG in IV NORMAL SALINE 250ML 250 ML IV SCH (12:24)
[2019-09-11 15:00] VITALS: BP 140/102
[2019-09-11 19:00] VITALS: BP 139/98
[2019-09-11 23:00] VITALS: BP 145/85
[2019-09-11] MEDS ORDERED: traMADol 50 MG TABLET PO PRN (23:30)
[2019-09-11] MEDS ORDERED: SIMETHICONE 80 MG TAB.CHEW PO PRN (23:30)
[2019-09-11] MEDS ORDERED: ACETAMINOPHEN 325 MG TABLET. PO PRN (23:30)
[2019-09-12] VITALS (7 sets, daily range): BP systolic 106–152; BP diastolic 60–97
[2019-09-12 05:05] LABS: BASO % 0 % (0-3); EOS # 0.1 x10^3/uL (0.0-0.7); EOS % 1 % (0-3); HEMATOCRIT 34.8 % (36.0-47.0); HEMOGLOBIN 11.7 g/dL (12.0-15.5); LYMPH # 1.4 x10^3/uL (1.0-4.8); LYMPH % 18 % (24-48); MEAN CORPUSCULAR HEMOGLOBIN 29 pg (25-35); MEAN CORPUSCULAR HGB CONC 34 g/dL (31-37); MEAN CORPUSCULAR VOLUME 85 fL (79-100); MONO # 0.3 x10^3/uL (0.0-1.1); MONO % 4 % (0-9); NEUT # 5.7 x10^3/uL (1.8-7.7); NEUT % 76 % (31-73); PLATELET COUNT 164 x10^3/uL (140-400); RED BLOOD COUNT 4.09 x10^6/uL (3.50-5.40); RED CELL DISTRIBUTION WIDTH 13.6 % (11.5-14.5); WHITE BLOOD COUNT 7.5 x10^3/uL (4.0-11.0)
[2019-09-12 05:28] LABS: ALBUMIN 3.2 g/dL (3.4-5.0); ALBUMIN/GLOBULIN RATIO 0.9 (1.0-1.7); CALCIUM 8.7 mg/dL (8.5-10.1); CREATININE 0.9 mg/dL (0.6-1.0); GFR 84.3; POTASSIUM 3.4 mmol/L (3.5-5.1); TOTAL BILIRUBIN 0.2 mg/dL (0.2-1.0); TOTAL PROTEIN 6.8 g/dL (6.4-8.2)
--- NOTE | 2019-09-12 09:51 | PDOC ---
Infectious Disease Note Subjective: Subjective COVID positive no f/c//v/d still has some sob and pain in the rt back on RA has some nausea Vital Signs: Vital Signs Vital Signs Date Time Temp Pulse Resp B/P (MAP) Pulse Ox O2 Delivery O2 Flow Rate FiO2 09/12/19 07:45 97.9 65 18 126/68 (87) 99 Room Air 97.9 Physical Exam: PHYSICAL EXAM Medications: Inpatient Meds: Current Medications Medications (Trade) Dose Ordered Sig/Dana Start Time Stop Time Status Last Admin Dose Admin Acetaminophen (Tylenol) 650 mg PRN Q4HRS PRN 09/11/19 23:30 Amlodipine Besylate (Norvasc) 10 mg DAILY 09/11/19 12:00 09/11/19 12:22 10 MG Ascorbic Acid (Vitamin C) 500 mg DAILY 09/10/19 13:00 09/11/19 08:55 500 MG Azithromycin 250 ml @ 250 mls/hr 1X ONCE 09/10/19 03:15 09/10/19 04:14 DC 09/10/19 03:32 250 MLS/HR Azithromycin 500 mg/Sodium Chloride 250 ml @ 250 mls/hr Q24H 09/10/19 13:00 09/14/19 13:59 09/11/19 12:24 250 MLS/HR Ceftriaxone Sodium (Rocephin) 1 gm Q24H 09/10/19 14:00 09/11/19 11:37 DC 09/10/19 17:30 1 GM Diphenhydramine HCl (Benadryl) 50 mg 1X ONCE 09/10/19 14:15 09/10/19 14:18 DC 09/10/19 14:25 50 MG Hydrochlorothiazide (Hydrodiuril) 25 mg DAILY 09/11/19 12:00 09/11/19 12:22 25 MG Hydroxychloroquine Sulfate (Plaquenil (Med Program)) 400 mg BID 09/10/19 14:00 09/10/19 21:01 DC 09/10/19 20:57 400 MG Info (CONTRAST GIVEN -- Rx MONITORING) 1 each PRN DAILY PRN 09/10/19 03:45 09/12/19 03:44 DC Iohexol (Omnipaque 350 Mg/ml) 100 ml 1X ONCE 09/10/19 03:45 09/10/19 03:46 DC 09/10/19 03:34 100 ML Lactobacillus Rhamnosus (Culturelle) 1 cap BID 09/10/19 21:00 09/11/19 20:41 1 CAP Lisinopril (Prinivil) 20 mg DAILY 09/11/19 12:00 09/11/19 12:22 20 MG Methylprednisolone Sodium Succinate (SOLU-Medrol 125MG VIAL) 125 mg 1X ONCE 09/10/19 14:15 09/10/19 14:18 DC 09/10/19 14:24 125 MG Morphine Sulfate (Morphine Sulfate) 2 mg 1X ONCE 09/10/19 14:15 09/10/19 14:18 DC 09/10/19 14:25 2 MG Nitroglycerin (Nitrostat) 0.4 mg STK-MED ONCE 09/10/19 14:05 09/10/19 14:05 DC Ondansetron HCl (Zofran) 4 mg PRN Q8HRS PRN 09/10/19 04:00 09/11/19 03:59 DC Piperacillin Sod/ Tazobactam Sod (Zosyn Per Pharmacy) 1 each PRN DAILY PRN 09/10/19 12:30 09/10/19 13:13 DC Piperacillin Sod/ Tazobactam Sod 3.375 gm/Sodium Chloride 50 ml @ 100 mls/hr Q6HRS 09/10/19 13:00 09/10/19 13:11 DC Potassium Chloride (Klor-Con) 40 meq 1X ONCE 09/10/19 03:30 09/10/19 03:31 DC 09/10/19 03:30 40 MEQ Simethicone (Gas-X) 80 mg PRN Q4HRS PRN 09/11/19 23:30 09/11/19 23:43 80 MG Sodium Chloride 1,000 ml @ 1,000 mls/hr 1X ONCE 09/10/19 01:45 09/10/19 02:44 DC 09/10/19 01:50 1,000 MLS/HR Tramadol HCl (Ultram) 50 mg PRN Q4HRS PRN 09/11/19 23:30 09/12/19 00:20 50 MG Zinc Sulfate (Orazinc) 220 mg DAILY 09/10/19 13:00 09/11/19 08:55 220 MG Labs: Lab Laboratory Tests Test 09/12/19 04:00 White Blood Count 7.5 x10^3/uL (4.0-11.0) Red Blood Count 4.09 x10^6/uL (3.50-5.40) Hemoglobin 11.7 g/dL (12.0-15.5) Hematocrit 34.8 % (36.0-47.0) Mean Corpuscular Volume 85 fL (79-100) Mean Corpuscular Hemoglobin 29 pg (25-35) Mean Corpuscular Hemoglobin Concent 34 g/dL (31-37) Red Cell Distribution Width 13.6 % (11.5-14.5) Platelet Count 164 x10^3/uL (140-400) Neutrophils (%) (Auto) 76 % (31-73) Lymphocytes (%) (Auto) 18 % (24-48) Monocytes (%) (Auto) 4 % (0-9) Eosinophils (%) (Auto) 1 % (0-3) Basophils (%) (Auto) 0 % (0-3) Neutrophils # (Auto) 5.7 x10^3/uL (1.8-7.7) Lymphocytes # (Auto) 1.4 x10^3/uL (1.0-4.8) Monocytes # (Auto) 0.3 x10^3/uL (0.0-1.1) Eosinophils # (Auto) 0.1 x10^3/uL (0.0-0.7) Basophils # (Auto) 0.0 x10^3/uL (0.0-0.2) Sodium Level 142 mmol/L (136-145) Potassium Level 3.4 mmol/L (3.5-5.1) Chloride Level 106 mmol/L (98-107) Carbon Dioxide Level 26 mmol/L (21-32) Anion Gap 10 (6-14) Blood Urea Nitrogen 13 mg/dL (7-20) Creatinine 0.9 mg/dL (0.6-1.0) Estimated GFR (Cockcroft-Gault) 84.3 BUN/Creatinine Ratio 14 (6-20) Glucose Level 95 mg/dL (70-99) Calcium Level 8.7 mg/dL (8.5-10.1) Total Bilirubin 0.2 mg/dL (0.2-1.0) Aspartate Amino Transf (AST/SGOT) 148 U/L (15-37) Alanine Aminotransferase (ALT/SGPT) 206 U/L (14-59) Alkaline Phosphatase 92 U/L (46-116) Total Protein 6.8 g/dL (6.4-8.2) Albumin 3.2 g/dL (3.4-5.0) Albumin/Globulin Ratio 0.9 (1.0-1.7) Objective: Assessment: 1. COVID-19 acute respiratory illness. 2. Dyspnea and chest discomfort. 3. Elevated D-dimer. CT chest shows no pulmonary embolism, but ground-glass infiltrates. 4. Hypokalemia. 5. Hypertension. 6. Hyperlipidemia. 7. Transaminitis likely drug induced Plan: Plan of Care DC azithromycin DC Plaquenil pt has completed both for 5 days today,started Monday from ED Off ceftriaxone Follow up labs and cultures. Continue supportive care. Pulmonary team following Maintain isolation for covid 19 d/w RN and VÍCTOR Granados MD Sep 12, 2019 09:51
[2019-09-12] MEDS: LACTOBACILLUS RHAMNOSUS GG 1 CAPSULE. PO SCH ×2 (10:03→21:03)
[2019-09-12] MEDS: LISINOPRIL 20 MG TABLET PO SCH (10:04)
[2019-09-12] MEDS: ASCORBIC ACID 500 MG TABLET PO SCH (10:04)
[2019-09-12] MEDS: amLODIPine BESYLATE 10 MG TABLET PO SCH (10:04)
[2019-09-12] MEDS: hydroCHLOROthiazide 25 MG TABLET PO SCH (10:04)
[2019-09-12] MEDS: ZINC SULFATE 220 MG CAPSULE. PO SCH (10:04)
[2019-09-12] MEDS: HYDROXYCHLOROQUINE (PROGRAM) 200 MG TABLET PO SCH (10:06)
--- NOTE | 2019-09-12 11:39 | PDOC ---
[facility] [facility] PROGRESS NOTE Chief Complaint Chief Complaint Covid-19 pneumonia Respiratory failure Hypertension Hyperlipidemia History of Present Illness History of Present Illness 09-12-2019 Patient seen and examined on the Covid-19 unit Still in respiratory isolation Complains of right upper quadrant pain radiating to the right shoulder I suspect she might have a gallstone We will get an ultrasound Discussed with RN Discussed with infectious disease physician Chart reviewed 09-11-2019 Patient seen and examined on the Covid-19 unit She remains in respiratory isolation Chart reviewed Discussed with RN Vitals/I&O Vitals/I&O: Vital Signs Date Time Temp Pulse Resp B/P (MAP) Pulse Ox O2 Delivery O2 Flow Rate FiO2 09/12/19 10:04 65 126/68 09/12/19 08:00 Room Air 09/12/19 07:45 97.9 18 99 97.9 I & O 09/11/19 09/11/19 09/12/19 15:00 23:00 07:00 Intake Total 300 ml Balance 300 ml Physical Exam Physical Exam: General: Oriented X3, mild distress Heart: Regular rate, Normal S1 Lungs: Clear Abdomen: Normal bowel sounds Extremities: No clubbing, No cyanosis Skin: No rashes, No breakdown Labs Labs: Laboratory Tests Test 09/12/19 04:00 White Blood Count 7.5 x10^3/uL (4.0-11.0) Red Blood Count 4.09 x10^6/uL (3.50-5.40) Hemoglobin 11.7 g/dL (12.0-15.5) Hematocrit 34.8 % (36.0-47.0) Mean Corpuscular Volume 85 fL (79-100) Mean Corpuscular Hemoglobin 29 pg (25-35) Mean Corpuscular Hemoglobin Concent 34 g/dL (31-37) Red Cell Distribution Width 13.6 % (11.5-14.5) Platelet Count 164 x10^3/uL (140-400) Neutrophils (%) (Auto) 76 % (31-73) Lymphocytes (%) (Auto) 18 % (24-48) Monocytes (%) (Auto) 4 % (0-9) Eosinophils (%) (Auto) 1 % (0-3) Basophils (%) (Auto) 0 % (0-3) Neutrophils # (Auto) 5.7 x10^3/uL (1.8-7.7) Lymphocytes # (Auto) 1.4 x10^3/uL (1.0-4.8) Monocytes # (Auto) 0.3 x10^3/uL (0.0-1.1) Eosinophils # (Auto) 0.1 x10^3/uL (0.0-0.7) Basophils # (Auto) 0.0 x10^3/uL (0.0-0.2) Sodium Level 142 mmol/L (136-145) Potassium Level 3.4 mmol/L (3.5-5.1) Chloride Level 106 mmol/L (98-107) Carbon Dioxide Level 26 mmol/L (21-32) Anion Gap 10 (6-14) Blood Urea Nitrogen 13 mg/dL (7-20) Creatinine 0.9 mg/dL (0.6-1.0) Estimated GFR (Cockcroft-Gault) 84.3 BUN/Creatinine Ratio 14 (6-20) Glucose Level 95 mg/dL (70-99) Calcium Level 8.7 mg/dL (8.5-10.1) Total Bilirubin 0.2 mg/dL (0.2-1.0) Aspartate Amino Transf (AST/SGOT) 148 U/L (15-37) Alanine Aminotransferase (ALT/SGPT) 206 U/L (14-59) Alkaline Phosphatase 92 U/L (46-116) Total Protein 6.8 g/dL (6.4-8.2) Albumin 3.2 g/dL (3.4-5.0) Albumin/Globulin Ratio 0.9 (1.0-1.7) Assessment and Plan Assessmemt and Plan Problems Medical Problems: (1) Dyspnea Status: Acute (2) Hypokalemia Status: Acute (3) Pneumonia due to COVID-19 virus Status: Acute Covid-19 pneumonia Respiratory failure Hypertension Hyperlipidemia Right upper quadrant pain/back pain Plan IV Rocephin and IV azithromycin Hydroxychloroquine 200 p.o. twice daily I added vitamin C and zinc Home meds DVT prophylaxis Will obtain ultrasound of the abdomen to rule out gallstones Full code Appreciate subspecialist input Comment Review of Relevant I have reviewed the following items felicitas (where applicable) has been applied. Medications: Current Medications Medications (Trade) Dose Ordered Sig/Dana Route PRN Reason Start Time Stop Time Status Last Admin Dose Admin Amlodipine Besylate (Norvasc) 10 mg DAILY PO 09/11/19 12:00 09/12/19 10:04 Lisinopril (Prinivil) 20 mg DAILY PO 09/11/19 12:00 09/12/19 10:04 Hydrochlorothiazide (Hydrodiuril) 25 mg DAILY PO 09/11/19 12:00 09/12/19 10:04 Tramadol HCl (Ultram) 50 mg PRN Q4HRS PRN PO MODERATE PAIN 4-6 09/11/19 23:30 09/12/19 00:20 Simethicone (Gas-X) 80 mg PRN Q4HRS PRN PO GAS / BLOATING 09/11/19 23:30 09/11/19 23:43 DOMINIC ANDRADE III DO Sep 12, 2019 11:39
--- NOTE | 2019-09-12 16:27 | PDOC ---
PULMONARY PROGRESS NOTES Subjective Patient feels much better. Vitals Vital Signs Date Time Temp Pulse Resp B/P (MAP) Pulse Ox O2 Delivery O2 Flow Rate FiO2 09/12/19 15:15 97.3 75 20 140/86 (104) 99 Room Air 97.3 ROS: No Nausea, No Chest Pain, No Abdominal Pain, No Increase Cough Lungs: Clear Cardiovascular: S1, S2 Abdomen: Soft Neuro Exam: Alert Extremities: No Edema Skin: Warm Labs Laboratory Tests Test 09/12/19 04:00 White Blood Count 7.5 x10^3/uL (4.0-11.0) Red Blood Count 4.09 x10^6/uL (3.50-5.40) Hemoglobin 11.7 g/dL (12.0-15.5) Hematocrit 34.8 % (36.0-47.0) Mean Corpuscular Volume 85 fL (79-100) Mean Corpuscular Hemoglobin 29 pg (25-35) Mean Corpuscular Hemoglobin Concent 34 g/dL (31-37) Red Cell Distribution Width 13.6 % (11.5-14.5) Platelet Count 164 x10^3/uL (140-400) Neutrophils (%) (Auto) 76 % (31-73) Lymphocytes (%) (Auto) 18 % (24-48) Monocytes (%) (Auto) 4 % (0-9) Eosinophils (%) (Auto) 1 % (0-3) Basophils (%) (Auto) 0 % (0-3) Neutrophils # (Auto) 5.7 x10^3/uL (1.8-7.7) Lymphocytes # (Auto) 1.4 x10^3/uL (1.0-4.8) Monocytes # (Auto) 0.3 x10^3/uL (0.0-1.1) Eosinophils # (Auto) 0.1 x10^3/uL (0.0-0.7) Basophils # (Auto) 0.0 x10^3/uL (0.0-0.2) Sodium Level 142 mmol/L (136-145) Potassium Level 3.4 mmol/L (3.5-5.1) Chloride Level 106 mmol/L (98-107) Carbon Dioxide Level 26 mmol/L (21-32) Anion Gap 10 (6-14) Blood Urea Nitrogen 13 mg/dL (7-20) Creatinine 0.9 mg/dL (0.6-1.0) Estimated GFR (Cockcroft-Gault) 84.3 BUN/Creatinine Ratio 14 (6-20) Glucose Level 95 mg/dL (70-99) Calcium Level 8.7 mg/dL (8.5-10.1) Total Bilirubin 0.2 mg/dL (0.2-1.0) Aspartate Amino Transf (AST/SGOT) 148 U/L (15-37) Alanine Aminotransferase (ALT/SGPT) 206 U/L (14-59) Alkaline Phosphatase 92 U/L (46-116) Total Protein 6.8 g/dL (6.4-8.2) Albumin 3.2 g/dL (3.4-5.0) Albumin/Globulin Ratio 0.9 (1.0-1.7) Laboratory Tests Test 09/12/19 04:00 White Blood Count 7.5 x10^3/uL (4.0-11.0) Red Blood Count 4.09 x10^6/uL (3.50-5.40) Hemoglobin 11.7 g/dL (12.0-15.5) Hematocrit 34.8 % (36.0-47.0) Mean Corpuscular Volume 85 fL (79-100) Mean Corpuscular Hemoglobin 29 pg (25-35) Mean Corpuscular Hemoglobin Concent 34 g/dL (31-37) Red Cell Distribution Width 13.6 % (11.5-14.5) Platelet Count 164 x10^3/uL (140-400) Neutrophils (%) (Auto) 76 % (31-73) Lymphocytes (%) (Auto) 18 % (24-48) Monocytes (%) (Auto) 4 % (0-9) Eosinophils (%) (Auto) 1 % (0-3) Basophils (%) (Auto) 0 % (0-3) Neutrophils # (Auto) 5.7 x10^3/uL (1.8-7.7) Lymphocytes # (Auto) 1.4 x10^3/uL (1.0-4.8) Monocytes # (Auto) 0.3 x10^3/uL (0.0-1.1) Eosinophils # (Auto) 0.1 x10^3/uL (0.0-0.7) Basophils # (Auto) 0.0 x10^3/uL (0.0-0.2) Sodium Level 142 mmol/L (136-145) Potassium Level 3.4 mmol/L (3.5-5.1) Chloride Level 106 mmol/L (98-107) Carbon Dioxide Level 26 mmol/L (21-32) Anion Gap 10 (6-14) Blood Urea Nitrogen 13 mg/dL (7-20) Creatinine 0.9 mg/dL (0.6-1.0) Estimated GFR (Cockcroft-Gault) 84.3 BUN/Creatinine Ratio 14 (6-20) Glucose Level 95 mg/dL (70-99) Calcium Level 8.7 mg/dL (8.5-10.1) Total Bilirubin 0.2 mg/dL (0.2-1.0) Aspartate Amino Transf (AST/SGOT) 148 U/L (15-37) Alanine Aminotransferase (ALT/SGPT) 206 U/L (14-59) Alkaline Phosphatase 92 U/L (46-116) Total Protein 6.8 g/dL (6.4-8.2) Albumin 3.2 g/dL (3.4-5.0) Albumin/Globulin Ratio 0.9 (1.0-1.7) Medications Active Scripts Medications Dose Route/Sig Max Daily Dose Days Date Category Lisinopril-Hctz 20-25 Mg Tab (Lisinopril/Hydrochlorothiazide) 1 Each Tablet 1 Tab PO DAILY 11/09/18 Reported Amlodipine Besylate 10 Mg Tablet 10 Mg PO DAILY 11/09/18 Reported Impression . IMPRESSION: 1. Acute respiratory distress secondary to COVID-[address]. 2[address] chest revealing ground-glass opacities compatible with viral pneumonia. 3. Chest pain, dyspnea secondary to above. 4. Elevated D-dimer. CT chest revealed no evidence of pulmonary embolism. 5. Hypertension. 6. POSSIBLE ALLERGIC REACTION TO ZOSYN. 7. The right upper quadrant pain work-up in progress Plan . Patient to undergo ultrasound of the abdomen Continue current support, continue Plaquenil Zithromax Discharge once abdominal work-up has been complete GABRIELLA HOUGH MD Sep 12, 2019 16:27
[2019-09-13 03:55] VITALS: BP 141/88
[2019-09-13 07:00] VITALS: BP 132/84
[2019-09-13] MEDS: hydroCHLOROthiazide 25 MG TABLET PO SCH (08:25)
[2019-09-13] MEDS: LACTOBACILLUS RHAMNOSUS GG 1 CAPSULE. PO SCH (08:25)
[2019-09-13] MEDS: ASCORBIC ACID 500 MG TABLET PO SCH (08:26)
[2019-09-13] MEDS: amLODIPine BESYLATE 10 MG TABLET PO SCH (08:27)
[2019-09-13] MEDS: ZINC SULFATE 220 MG CAPSULE. PO SCH (08:27)
[2019-09-13] MEDS: LISINOPRIL 20 MG TABLET PO SCH (08:28)
--- NOTE | 2019-09-13 09:45 | PDOC ---
Infectious Disease Note Subjective: Subjective COVID positive no f/c/v/d feels better still has some sob Vital Signs: Vital Signs Vital Signs Date Time Temp Pulse Resp B/P (MAP) Pulse Ox O2 Delivery O2 Flow Rate FiO2 09/13/19 08:28 68 132/84 09/13/19 07:00 97.5 16 99 Nasal Cannula 2.0 97.5 Physical Exam: PHYSICAL EXAM Visual exam see primary care and pulm comfortable on o2 nc heart regular rhythm lungs no accessory muscle use ext no edema Medications: Inpatient Meds: Current Medications Medications (Trade) Dose Ordered Sig/Dana Start Time Stop Time Status Last Admin Dose Admin Acetaminophen (Tylenol) 650 mg PRN Q4HRS PRN 09/11/19 23:30 09/12/19 21:03 650 MG Amlodipine Besylate (Norvasc) 10 mg DAILY 09/11/19 12:00 09/13/19 08:27 10 MG Ascorbic Acid (Vitamin C) 500 mg DAILY 09/10/19 13:00 09/13/19 08:26 500 MG Azithromycin 250 ml @ 250 mls/hr 1X ONCE 09/10/19 03:15 09/10/19 04:14 DC 09/10/19 03:32 250 MLS/HR Azithromycin 500 mg/Sodium Chloride 250 ml @ 250 mls/hr Q24H 09/10/19 13:00 09/12/19 11:14 DC 09/11/19 12:24 250 MLS/HR Ceftriaxone Sodium (Rocephin) 1 gm Q24H 09/10/19 14:00 09/11/19 11:37 DC 09/10/19 17:30 1 GM Diphenhydramine HCl (Benadryl) 50 mg 1X ONCE 09/10/19 14:15 09/10/19 14:18 DC 09/10/19 14:25 50 MG Hydrochlorothiazide (Hydrodiuril) 25 mg DAILY 09/11/19 12:00 09/13/19 08:25 25 MG Hydroxychloroquine Sulfate (Plaquenil (Med Program)) 400 mg BID 09/10/19 14:00 09/10/19 21:01 DC 09/10/19 20:57 400 MG Info (CONTRAST GIVEN -- Rx MONITORING) 1 each PRN DAILY PRN 09/10/19 03:45 09/12/19 03:44 DC Iohexol (Omnipaque 350 Mg/ml) 100 ml 1X ONCE 09/10/19 03:45 09/10/19 03:46 DC 09/10/19 03:34 100 ML Lactobacillus Rhamnosus (Culturelle) 1 cap BID 09/10/19 21:00 09/13/19 08:25 1 CAP Lisinopril (Prinivil) 20 mg DAILY 09/11/19 12:00 09/13/19 08:28 20 MG Methylprednisolone Sodium Succinate (SOLU-Medrol 125MG VIAL) 125 mg 1X ONCE 09/10/19 14:15 09/10/19 14:18 DC 09/10/19 14:24 125 MG Morphine Sulfate (Morphine Sulfate) 2 mg 1X ONCE 09/10/19 14:15 09/10/19 14:18 DC 09/10/19 14:25 2 MG Nitroglycerin (Nitrostat) 0.4 mg STK-MED ONCE 09/10/19 14:05 09/10/19 14:05 DC Ondansetron HCl (Zofran) 4 mg PRN Q8HRS PRN 09/10/19 04:00 09/11/19 03:59 DC Piperacillin Sod/ Tazobactam Sod (Zosyn Per Pharmacy) 1 each PRN DAILY PRN 09/10/19 12:30 09/10/19 13:13 DC Piperacillin Sod/ Tazobactam Sod 3.375 gm/Sodium Chloride 50 ml @ 100 mls/hr Q6HRS 09/10/19 13:00 09/10/19 13:11 DC Potassium Chloride (Klor-Con) 40 meq 1X ONCE 09/10/19 03:30 09/10/19 03:31 DC 09/10/19 03:30 40 MEQ Simethicone (Gas-X) 80 mg PRN Q4HRS PRN 09/11/19 23:30 09/11/19 23:43 80 MG Sodium Chloride 1,000 ml @ 1,000 mls/hr 1X ONCE 09/10/19 01:45 09/10/19 02:44 DC 09/10/19 01:50 1,000 MLS/HR Tramadol HCl (Ultram) 50 mg PRN Q4HRS PRN 09/11/19 23:30 09/12/19 00:20 50 MG Zinc Sulfate (Orazinc) 220 mg DAILY 09/10/19 13:00 09/13/19 08:27 220 MG Objective: Assessment: 1. COVID-19 acute respiratory illness. 2. Dyspnea and chest discomfort. 3. Elevated D-dimer. CT chest shows no pulmonary embolism, but ground-glass infiltrates. 4. Hypokalemia. 5. Hypertension. 6. Hyperlipidemia. 7. Transaminitis likely drug induced Plan: Plan of Care pt has completed azithromycin and hydroxycholoroquine Continue supportive care. Pulmonary team following Maintain isolation for covid 19 d/w VÍCTOR TORRES MD Sep 13, 2019 09:45
[2019-09-13 11:00] VITALS: BP 140/92
--- NOTE | 2019-09-13 12:52 | DS ---
DATE OF DISCHARGE: 09/13/2019 ADMISSION DIAGNOSIS: COVID-19 pneumonia. DISCHARGE DIAGNOSIS: Resolving COVID-19. HOSPITAL COURSE: The patient is a pleasant 38-year-old female who was presented with COVID-19 pneumonia. She was admitted. We gave her Plaquenil, IV antibiotics, breathing treatments and oxygen and vitamins. Consulted Pulmonary Medicine and Infectious Disease. Over the past couple of days, she has returned to her baseline. Today, I saw her and examined her. PHYSICAL EXAMINATION: HEART: Her heart tones are normal. LUNGS: Clear. ABDOMEN: Soft. EXTREMITIES: No edema. We plan to discharge home. DISPOSITION: Home. ACTIVITY: As tolerated. DIET: Low sodium. MEDICATIONS: Please see MRAD. TOTAL TIME: 32 minutes. DOMINIC ANDRADE DO DR: BRYANNA/teetee JOB#: [id number] / [id number]
--- NOTE | 2019-09-13 16:37 | PDOC ---
PULMONARY PROGRESS NOTES Subjective Patient feels much better. Vitals Vital Signs Date Time Temp Pulse Resp B/P (MAP) Pulse Ox O2 Delivery O2 Flow Rate FiO2 09/13/19 11:00 96.0 76 18 140/92 (108) 97 Room Air 96.0 09/13/19 07:00 2.0 ROS: No Nausea, No Chest Pain, No Abdominal Pain, No Increase Cough Lungs: Clear Cardiovascular: S1, S2 Abdomen: Soft Neuro Exam: Alert Extremities: No Edema Skin: Warm Labs Laboratory Tests Test 09/12/19 04:00 White Blood Count 7.5 x10^3/uL (4.0-11.0) Red Blood Count 4.09 x10^6/uL (3.50-5.40) Hemoglobin 11.7 g/dL (12.0-15.5) Hematocrit 34.8 % (36.0-47.0) Mean Corpuscular Volume 85 fL (79-100) Mean Corpuscular Hemoglobin 29 pg (25-35) Mean Corpuscular Hemoglobin Concent 34 g/dL (31-37) Red Cell Distribution Width 13.6 % (11.5-14.5) Platelet Count 164 x10^3/uL (140-400) Neutrophils (%) (Auto) 76 % (31-73) Lymphocytes (%) (Auto) 18 % (24-48) Monocytes (%) (Auto) 4 % (0-9) Eosinophils (%) (Auto) 1 % (0-3) Basophils (%) (Auto) 0 % (0-3) Neutrophils # (Auto) 5.7 x10^3/uL (1.8-7.7) Lymphocytes # (Auto) 1.4 x10^3/uL (1.0-4.8) Monocytes # (Auto) 0.3 x10^3/uL (0.0-1.1) Eosinophils # (Auto) 0.1 x10^3/uL (0.0-0.7) Basophils # (Auto) 0.0 x10^3/uL (0.0-0.2) Sodium Level 142 mmol/L (136-145) Potassium Level 3.4 mmol/L (3.5-5.1) Chloride Level 106 mmol/L (98-107) Carbon Dioxide Level 26 mmol/L (21-32) Anion Gap 10 (6-14) Blood Urea Nitrogen 13 mg/dL (7-20) Creatinine 0.9 mg/dL (0.6-1.0) Estimated GFR (Cockcroft-Gault) 84.3 BUN/Creatinine Ratio 14 (6-20) Glucose Level 95 mg/dL (70-99) Calcium Level 8.7 mg/dL (8.5-10.1) Total Bilirubin 0.2 mg/dL (0.2-1.0) Aspartate Amino Transf (AST/SGOT) 148 U/L (15-37) Alanine Aminotransferase (ALT/SGPT) 206 U/L (14-59) Alkaline Phosphatase 92 U/L (46-116) Total Protein 6.8 g/dL (6.4-8.2) Albumin 3.2 g/dL (3.4-5.0) Albumin/Globulin Ratio 0.9 (1.0-1.7) Medications Active Scripts Medications Dose Route/Sig Max Daily Dose Days Date Category Lisinopril-Hctz 20-25 Mg Tab (Lisinopril/Hydrochlorothiazide) 1 Each Tablet 1 Tab PO DAILY 11/09/18 Reported Amlodipine Besylate 10 Mg Tablet 10 Mg PO DAILY 11/09/18 Reported Impression . IMPRESSION: 1. Acute respiratory distress secondary to COVID-19. 2. [address] CT chest revealing ground-glass opacities compatible with viral pneumonia. 3. Chest pain, dyspnea secondary to above. 4. Elevated D-dimer. CT chest revealed no evidence of pulmonary embolism. 5. Hypertension. 6. POSSIBLE ALLERGIC REACTION TO ZOSYN. 7. The right upper quadrant pain work-up in progress Plan . Patient with severe cough, will discharge home on prednisone 30 mg x 5 days, Phenergan with codeine Follow-up in my office if no improvement Continue current support, continue Plaquenil Zithromax GABRIELLA HOUGH MD Sep 13, 2019 16:37
== END 2019-09-13 15:30 | disposition home or self-care (01) | DRG 177 ==
LOC: ER 01:42 → 1 WEST ICU 03:25 → 6 SOUTH 04:31
PROVIDERS: ADMIT Family Medicine; ATTEND Family Medicine
DX: U07.1 COVID-19 (principal); J12.89 Other viral pneumonia; J96.90 Respiratory failure, unspecified, unspecified whether with hypoxia or hypercapnia; E78.5 Hyperlipidemia, unspecified; E87.6 Hypokalemia; I10 Essential (primary) hypertension; Z78.9 Other specified health status; Z83.3 Family history of diabetes mellitus; Z90.710 Acquired absence of both cervix and uterus; Z98.51 Tubal ligation status; Z79.899 Other long term (current) drug therapy
CPT/HCPCS: 36415; 71045; 71275; 80053; 81001; 82553; 82728; 83605; 83615; 83735; 83880; 84145; 84484; 85025; 85379; 85610; 85730; 87040; 93005; J0456; J0696; J1200; J2270; J2930; J7030; J7050; Q9967; G0378

== ENCOUNTER 2019-09-26 19:36 | Emergency (ER) | payer OTHER ==
[~2019-09-26] VITALS: Ht 160 cm; Wt 97.0 kg
[2019-09-26] MEDS ORDERED: IV NORMAL SALINE 1000ML BAG 1,000 ML IV SCH (19:56)
--- NOTE | 2019-09-26 20:10 | EKG ---
[facility] [address] [place] [address] Test Date: 2019-09-26 Test Time: 19:58:08 Pat Name: PARISA PETE Department: Room: Gender: F Inside Sales Consultant: : 1980 Requested By: GRADY EVANS Order Number: [id number] Reading MD: Bogdan Romeo Measurements Intervals [place] Rate: 57 P: 0 PA: 152 QRS: 44 QRSD: 82 T: 26 QT: 416 QTc: 408 Interpretive Statements SINUS RHYTHM Electronically Signed On 09-27-2019 8:23:59 CDT by Bogdan Romeo
[2019-09-26 20:13] LABS: BASO # 0.1 x10^3/uL (0.0-0.2); BASO % 1 % (0-3); EOS # 0.1 x10^3/uL (0.0-0.7); EOS % 1 % (0-3); HEMATOCRIT 35.5 % (36.0-47.0); HEMOGLOBIN 12.1 g/dL (12.0-15.5); LYMPH % 41 % (24-48); MEAN CORPUSCULAR HEMOGLOBIN 29 pg (25-35); MEAN CORPUSCULAR HGB CONC 34 g/dL (31-37); MEAN CORPUSCULAR VOLUME 85 fL (79-100); MONO # 0.7 x10^3/uL (0.0-1.1); MONO % 7 % (0-9); NEUT # 5.1 x10^3/uL (1.8-7.7); NEUT % 51 % (31-73); PLATELET COUNT 203 x10^3/uL (140-400); RED BLOOD COUNT 4.18 x10^6/uL (3.50-5.40); RED CELL DISTRIBUTION WIDTH 13.8 % (11.5-14.5); WHITE BLOOD COUNT 9.9 x10^3/uL (4.0-11.0)
[2019-09-26 20:14] LABS: CALCIUM 9.9 mg/dL (8.5-10.1); GFR 74.7; POTASSIUM 3.5 mmol/L (3.5-5.1)
--- NOTE | 2019-09-26 20:19 | RAD ---
PORTABLE CHEST 1V History: Dyspnea, positive COVID Comparison: None. Findings: Single view of the chest is submitted. There is no infiltrate, pneumothorax, or effusion. The pericardial cardiac silhouette is within normal limits in size. Impression: 1. No significant infiltrate is identified by radiograph. Electronically signed by: Anthony Moya MD (09/26/2019 8:16 PM) [facility]
[2019-09-26 20:20] LABS: ALBUMIN 3.7 g/dL (3.4-5.0); ALBUMIN/GLOBULIN RATIO 0.9 (1.0-1.7); TOTAL BILIRUBIN 0.3 mg/dL (0.2-1.0); TOTAL PROTEIN 7.6 g/dL (6.4-8.2)
[2019-09-26 21:52] LABS: BILIRUBIN,URINE NEGATIVE (NEG); CLARITY,URINE CLEAR; COLOR,URINE YELLOW; NITRITE,URINE NEGATIVE (NEG); PH,URINE 6.5 (<5.0-8.0); PROTEIN,URINE NEGATIVE (NEG-TRACE); UROBILINOGEN,URINE 0.2 mg/dL (0.2 mg/dL)
[2019-09-26 22:00] LABS: SQUAMOUS EPITHELIAL CELL,UR MANY /LPF
[2019-09-26 22:01] LABS: BACTERIA,URINE MODERATE /HPF (0-FEW); RBC,URINE 0 /HPF (0-2)
--- NOTE | 2019-09-26 22:37 | PHYS DOC ---
Past Medical History Past Medical History: Asthma, Hypertension Past Surgical History: Hysterectomy, Tubal ligation Smoking Status: Never Smoker Alcohol Use: Rarely Drug Use: None General Adult EDM: Chief Complaint: SHORTNESS OF BREATH HPI: HPI: Patient is a 38 year old female who presents with report of shortness of breath. Patient was recently discharged from hospital after being admitted for COVID-19. Patient states that she had been admitted for pneumonia. She states that she was feeling better but then a few days ago started feeling worse again. She states that last she had been tested again for Covid and it had returned negative. She states that she was again tested this past Monday and the test was positive. Patient is afraid that she may have developed an infection again. She denies any chest pain. She states the primary complaint is just shortness of breath.[] Review of Systems: Review of Systems: Constitutional: Denies fever or chills. [] Respiratory: Positive cough and shortness of breath. [] Cardiovascular: Denies chest pain or edema. [] GI: Denies abdominal pain, nausea, vomiting or diarrhea. [] Musculoskeletal: Positive body aches/pain. [] Integument: Denies rash. [] Neurologic: Denies headache, focal weakness or sensory changes. [] A complete 10 point review of systems has been reviewed and is otherwise negative. Heart Score: Risk Factors: Risk Factors: DM, Current or recent (<one month) smoker, HTN, HLP, family history of CAD, obesity. Risk Scores: Score 0 - 3: 2.5% MACE over next 6 weeks - Discharge Home Score 4 - 6: 20.3% MACE over next 6 weeks - Admit for Clinical Observation Score 7 - 10: 72.7% MACE over next 6 weeks - Early Invasive Strategies Current Medications: Current Medications Medications (Trade) Dose Ordered Sig/Dana Start Time Stop Time Status Last Admin Dose Admin Sodium Chloride 1,000 ml @ 1,000 mls/hr Q1H 09/26/19 19:56 09/26/19 20:55 DC 09/26/19 19:56 1,000 MLS/HR Allergies: Allergies: Allergies Coded Allergies Type Severity Reaction Last Updated Verified piperacillin Allergy Intermediate 09/11/19 Yes tazobactam Allergy Intermediate 09/11/19 Yes Physical Exam: PE: Constitutional: Well developed, well nourished, no acute distress, non-toxic appearance. [] HENT: Normocephalic, atraumatic, bilateral external ears normal, oropharynx moist, no oral exudates, nose normal. [] Eyes: PERRLA, EOMI, conjunctiva normal, no discharge. [] Neck: Normal range of motion, no tenderness, supple, no stridor. [] Cardiovascular: Regular rate and rhythm[] Lungs & Thorax: Bilateral breath sounds clear to auscultation [] Abdomen: Bowel sounds normal, soft, no tenderness. [] Skin: Warm, dry, no erythema, no rash. [] Extremities: No tenderness, no cyanosis, no clubbing, ROM intact, no edema. [] Neurologic: Alert and oriented X 3, no focal deficits noted. [] Current Patient Data: Labs: Laboratory Tests Test 09/26/19 19:50 09/26/19 21:45 White Blood Count 9.9 x10^3/uL (4.0-11.0) Red Blood Count 4.18 x10^6/uL (3.50-5.40) Hemoglobin 12.1 g/dL (12.0-15.5) Hematocrit 35.5 % (36.0-47.0) L Mean Corpuscular Volume 85 fL (79-100) Mean Corpuscular Hemoglobin 29 pg (25-35) Mean Corpuscular Hemoglobin Concent 34 g/dL (31-37) Red Cell Distribution Width 13.8 % (11.5-14.5) Platelet Count 203 x10^3/uL (140-400) Neutrophils (%) (Auto) 51 % (31-73) Lymphocytes (%) (Auto) 41 % (24-48) Monocytes (%) (Auto) 7 % (0-9) Eosinophils (%) (Auto) 1 % (0-3) Basophils (%) (Auto) 1 % (0-3) Neutrophils # (Auto) 5.1 x10^3/uL (1.8-7.7) Lymphocytes # (Auto) 4.0 x10^3/uL (1.0-4.8) Monocytes # (Auto) 0.7 x10^3/uL (0.0-1.1) Eosinophils # (Auto) 0.1 x10^3/uL (0.0-0.7) Basophils # (Auto) 0.1 x10^3/uL (0.0-0.2) Sodium Level 143 mmol/L (136-145) Potassium Level 3.5 mmol/L (3.5-5.1) Chloride Level 105 mmol/L (98-107) Carbon Dioxide Level 27 mmol/L (21-32) Anion Gap 11 (6-14) Blood Urea Nitrogen 17 mg/dL (7-20) Creatinine 1.0 mg/dL (0.6-1.0) Estimated GFR (Cockcroft-Gault) 74.7 BUN/Creatinine Ratio 17 (6-20) Glucose Level 98 mg/dL (70-99) Calcium Level 9.9 mg/dL (8.5-10.1) Total Bilirubin 0.3 mg/dL (0.2-1.0) Aspartate Amino Transferase (AST) 16 U/L (15-37) Alanine Aminotransferase (ALT) 57 U/L (14-59) Alkaline Phosphatase 85 U/L (46-116) Total Protein 7.6 g/dL (6.4-8.2) Albumin 3.7 g/dL (3.4-5.0) Albumin/Globulin Ratio 0.9 (1.0-1.7) L Urine Collection Type Unknown Urine Color Yellow Urine Clarity Clear Urine pH 6.5 (<5.0-8.0) Urine Specific [place] 1.025 (1.000-1.030) Urine Protein Negative mg/dL (NEG-TRACE) Urine Glucose (UA) Negative mg/dL (NEG) Urine Ketones (Stick) Negative mg/dL (NEG) Urine Blood Negative (NEG) Urine Nitrite Negative (NEG) Urine Bilirubin Negative (NEG) Urine Urobilinogen Dipstick 0.2 mg/dL (0.2 mg/dL) Urine Leukocyte Esterase Negative (NEG) Urine RBC 0 /HPF (0-2) Urine WBC 1-4 /HPF (0-4) Urine Squamous Epithelial Cells Many /LPF Urine Bacteria Moderate /HPF (0-FEW) Urine Mucus Marked /LPF Laboratory Tests 09/26/19 19:50 Laboratory Tests 09/26/19 19:50 Vital Signs: Vital Signs Date Time Temp Pulse Resp B/P (MAP) Pulse Ox O2 Delivery O2 Flow Rate FiO2 09/26/19 19:47 98.7 70 18 191/109 (136) 99 Room Air 98.7 EKG: EKG: [] Radiology/Procedures: Radiology/Procedures: [] Impression: PROCEDURE: PORTABLE CHEST 1V PORTABLE CHEST 1V History: Dyspnea, positive COVID Comparison: None. Findings: Single view of the chest is submitted. There is no infiltrate, pneumothorax, or effusion. The pericardial cardiac silhouette is within normal limits in size. Impression: 1. No significant infiltrate is identified by radiograph. Electronically signed by: Anthony Moya MD (09/26/2019 8:16 PM) [facility] Course & Med Decision Making: Course & Med Decision Making Pertinent Labs and Imaging studies reviewed. (See chart for details) [] Dragon Disclaimer: Dragon Disclaimer: This electronic medical record was generated, in whole or in part, using a voice recognition dictation system. COVID-19 Patient Risks: Age 65 or older: No Sign of co-morbidity: No Exp to person + for COVID: Yes Exp to PUI: No Travel from affected area: No Lower respiratory symptoms: Yes Fever: No Other: Yes Comments: TESTED POSITIVE FOR COVID-19 PPE Use: Full PPE with N95 mask or PAPR: Yes Departure Departure Impression: Primary Impression: COVID-19 Disposition: 01 HOME, SELF-CARE Condition: STABLE Referrals: JULIANO PRITCHETT MD (PCP) Patient Instructions: Upper Respiratory Infection, Adult GRADY EVANS Jr. DO Sep 26, 2019 22:37
[2019-09-26 22:48] VITALS: BP 151/93
[2019-09-26] MEDS ORDERED: CLON0.5T PO (23:12)
== END 2019-09-26 23:10 | disposition home or self-care (01) ==
LOC: ER 19:36
DX: U07.1 COVID-19 (principal); R06.02 Shortness of breath; J45.909 Unspecified asthma, uncomplicated; I10 Essential (primary) hypertension; Z88.1 Allergy status to other antibiotic agents
CPT/HCPCS: 36415; 71045; 80053; 81001; 85025; 87086; 93005; 99285; J7030